=== PATIENT | female | born 1995 | race Two or more races ===

== ENCOUNTER 2016-08-24 21:21 | Emergency (ER) | payer BC ==
[2016-08-24 21:49] VITALS: BP 117/68
[2016-08-24] MEDS ORDERED: Prochlorperazine TAB* 10 MG PO ONE (22:10)
[2016-08-24] MEDS ORDERED: Ketorolac INJ* 60 MG/2 ML VIAL IM ONE (22:10)
[2016-08-24] MEDS ORDERED: Cyclobenzaprine TAB* 10 MG PO ONE (22:10)
--- NOTE | 2016-08-24 22:28 | ED ---
Head Injury - HPI Summary HPI Summary: Patient presents to ED 8 hours s/p mechanical fall on concrete and c/o right shoulder pain, right hip pain and right sided CARRION. Denies CARRION worst of life. Notes to going to work after the fall, but felt the CARRION all day and work sent her here to ED. She did not take any medication to alleviate the pain. Patient has chronic tension CARRION, but she states this feels similar but worse. Notes to 9/10 pain over right parietal and temporal areas. Patient notes to shoulder and hip pain but is able to raise arms and walk without difficulty. Denies LOC, memory loss, confusion, N/V or visual disturbances. Patient is otherwise healthy and takes no medications. She takes Excedrin if she develops a tension CARRION. - History Of Current Complaint Chief Complaint: EDGeneral Stated Complaint: FALL/HEAD,NECK AND RIGHT HIP INJURY Time Seen by Provider: 08/24/16 21:40 Hx Obtained From: Patient Hx Last Menstrual Period: 04/19/14 Mechanism Of Injury: Blunt Trauma, Fall From A Standing Position Onset/Duration: Started Hours Ago - 8 Onset of Pain: Immediate Severity Currently: Moderate Severity Initially: Moderate Pain Intensity: 7 Pain Scale Used: 0-10 Numeric Location of Head Injury: Temporal, Parietal Location: Discrete At: - right side Character: Sharp, Throbbing Alleviating Factor(s): Rest Associated Signs And Symptoms: Negative Related History: Similar Episode/Dx as - Risk Factors SDH Risk Factor: Negative - Allergies/Home Medications Allergies/Adverse Reactions: Allergies Allergy/AdvReac Type Severity Reaction Status Date / Time Penicillins Allergy Unknown Hives Verified 05/14/15 07:07 ENVIRONMENTAL Allergy WATERY Uncoded 05/14/15 07:07 EYES, RUNNY NOSE PMH/Surg Hx/FS Hx/Imm Hx Previously Healthy: Yes Endocrine/Hematology History: Reports: Other Endocrine/Hematological Disorders - PCOS - rx'd metformin - doesn't take d/t GI SE Denies: Hx Thyroid Disease Comment Only: Hx Diabetes - INSULIN RESISTANT Cardiovascular History: Denies: Hx Hypertension, Other Cardiovascular Problems/Disorders Respiratory History: Reports: Hx Asthma Denies: Hx Chronic Obstructive Pulmonary Disease (COPD), Other Respiratory Problems/Disorders GI History: Reports: Hx Gastroesophageal Reflux Disease Denies: Hx Ulcer, Other GI Disorders Musculoskeletal History: Reports: Hx Tendonitis - RIGHT ELBOW Sensory History: Reports: Hx Contacts or Glasses - GLASSES Denies: Hx Hearing Aid Opthamlomology History: Reports: Hx Contacts or Glasses - GLASSES Neurological History: Denies: Other Neuro Impairments/Disorders Psychiatric History: Reports: Hx Anxiety - Surgical History Surgery Procedure, Year, and Place: December 15, 2011 - Appendectomy. tonsilectomy Hx Anesthesia Reactions: No Infectious Disease History: No Infectious Disease History: Denies: Hx Clostridium Difficile, Hx Hepatitis, Hx Human Immunodeficiency Virus (HIV), Hx of Known/Suspected MRSA, Hx Shingles, Hx Tuberculosis, Hx Known/ Suspected VRE, Hx Known/Suspected VRSA, History Other Infectious Disease, Traveled Outside the [place] in Last 30 Days - Family History Known Family History: Positive: Cardiac Disease - a. fib, Respiratory Disease - asthma, Seizure Disorder - aunt, Other - variety of cancers - Social History Occupation: Employed Full-time Lives: With Family Alcohol Use: Rare Substance Use Type: Reports: None Smoking Status (MU): Never Smoked Tobacco Do You Chew or Dip Tobacco: No Have You Chewed or Dipped Tobacco in the LAST YEAR: No Have You Smoked in the Last Year: No Review of Systems Constitutional: Negative Eyes: Negative Cardiovascular: Negative Respiratory: Negative Genitourinary: Negative Musculoskeletal: Negative Positive: Headache Psychological: Normal All Other Systems Reviewed And Are Negative: Yes Physical Exam Triage Information Reviewed: Yes Vital Signs On Initial Exam: Initial Vitals Temp Pulse Resp BP Pulse Ox 98.8 F 86 18 140/78 100 08/24/16 21:30 08/24/16 21:30 08/24/16 21:30 08/24/16 21:30 08/24/16 21:30 Vital Signs Reviewed: Yes Appearance: Positive: Well-Appearing, No Pain Distress, Well-Nourished Skin: Positive: Warm, Skin Color Reflects Adequate Perfusion, Other - no ecchymosis or discolorations over r hip or r shoulder Head/Face: Positive: Normal Head/Face Inspection Eyes: Positive: EOMI, HENOK, Conjunctiva Clear ENT: Positive: Other - without hemotympanum, perez sign or raccoon sign Neck: Positive: Supple, No Lymphadenopathy Respiratory/Lung Sounds: Positive: Clear to Auscultation, Breath Sounds Present Cardiovascular: Positive: Normal, RRR Musculoskeletal: Positive: Normal, Strength/ROM Intact, Other - Neer test negative, empty can negative. gait normal. Neurological: Positive: Normal, Sensory/Motor Intact, Alert, Oriented to Person Place, Time, CN Intact II-III, Reflexes Intact, Normal Gait, Facial Symmetry, Speech Normal Psychiatric: Positive: Normal AVPU Assessment: Alert Diagnostics - Vital Signs Vital Signs Temp Pulse Resp BP Pulse Ox 08/24/16 21:46 98.3 F 74 20 117/68 99 08/24/16 21:30 98.8 F 86 18 140/78 100 - Laboratory Lab Statement: Any lab studies that have been ordered have been reviewed, and results considered in the medical decision making process. Head Injury Course/Dx Course Of Treatment: Patient evaluated for neurological deficits. Patient without LOC, memory loss, confusion, mood changes. CARRION not worst of life. Gait normal. Shoulder exam WNL. Patient notes to chronic tension CARRION. Treatment includes compazine, toradol and flexeril. Patient given rx for compazine and flexeril. Patient agrees to follow up with neuro if symptoms continue or worsen. Educated patient regarding CT brain. Patient OK with plan and will return for worsening symptoms. - Diagnoses Differential Diagnosis/HQI/PQRI: Concussion Without LOC, Contusion, Intracranial Bleed Provider Diagnoses: Headache Discharge - Discharge Plan Condition: Stable Disposition: HOME Prescriptions: Cyclobenzaprine TAB* [Flexeril TAB*] 10 mg PO BID PRN #10 tab MDD 2 PRN Reason: Pain Prochlorperazine TAB* [Compazine Tab*] 10 mg PO Q6H PRN #12 tab MDD 4 PRN Reason: Migraine Headache Patient Education Materials: Tension Headache (ED), Acute Headache (ED) Forms: *Work Release Referrals: Gini Almonte MD [Primary Care Provider] - Additional Instructions: Take 1 compazine and 600mg ibuprofen at first onset of headache. At night, you may take bendaryl 25mg with these two medications. If you develop worsening symptoms, or headache is not dissipating, please come back to ED immediately. Flexeril for muscle pain.
== END 2016-08-24 22:30 | disposition home or self-care (01) ==
LOC: ED 21:21
DX: R51 Headache (principal); M25.511 Pain in right shoulder
CPT/HCPCS: 96372; 99283; A9270-GY; J1885; Q0164

== ENCOUNTER 2017-01-05 00:06 | Emergency (ER) | payer BC ==
[2017-01-05 02:13] LABS: Hematocrit 39 % (35-47); Hemoglobin 12.6 g/dl (12.0-16.0); Mean Corpuscular HGB Conc 32 g/dl (31-36); Mean Corpuscular Hemoglobin 28 pg (27-31); Mean Corpuscular Volume 86 fL (80-97); Mean Platelet Volume 9 um3 (7.4-10.4); Red Blood Count 4.56 10^6/ul (4.0-5.4); Red Cell Distribution Width 13 % (10.5-15); White Blood Count 11.4 10^3/ul (3.5-10.8)
--- NOTE | 2017-01-05 02:30 | ED ---
Respiratory - HPI Summary HPI Summary: 22F w/ PMH of asthma presents with SOB and cough for a day. She states she has chest pain in center of chest from coughing and has sort of an acid reflux type pain. She denies any sinus congestion, nasal congestion. She denies any fever or ear pain. She states she lost her inhaler and hasn't used it for years but she used her moms today and it helped. She states she has never had this before. No one else is sick. She is suppose to be on flovent but hasn't seen a doctor in years. She denies any abdominal pain, n/v/d/c. - History of Current Complaint Chief Complaint: EDShortnessOfBreath Stated Complaint: SOB ALL DAY/CHEST PAIN X2 HRS Time Seen by Provider: 01/05/17 00:52 Pain Intensity: 5 - Allergy/Home Medications Allergies/Adverse Reactions: Allergies Allergy/AdvReac Type Severity Reaction Status Date / Time Penicillins Allergy Unknown Hives Verified 05/14/15 07:07 ENVIRONMENTAL Allergy WATERY Uncoded 05/14/15 07:07 EYES, RUNNY NOSE PMH/Surg Hx/FS Hx/Imm Hx Endocrine/Hematology History: Reports: Other Endocrine/Hematological Disorders - PCOS - rx'd metformin - doesn't take d/t GI SE Denies: Hx Thyroid Disease Comment Only: Hx Diabetes - INSULIN RESISTANT Cardiovascular History: Denies: Hx Hypertension, Other Cardiovascular Problems/Disorders Respiratory History: Reports: Hx Asthma Denies: Hx Chronic Obstructive Pulmonary Disease (COPD), Other Respiratory Problems/Disorders GI History: Reports: Hx Gastroesophageal Reflux Disease Denies: Hx Ulcer, Other GI Disorders Musculoskeletal History: Reports: Hx Tendonitis - RIGHT ELBOW Sensory History: Reports: Hx Contacts or Glasses - GLASSES Denies: Hx Hearing Aid Opthamlomology History: Reports: Hx Contacts or Glasses - GLASSES Neurological History: Denies: Other Neuro Impairments/Disorders Psychiatric History: Reports: Hx Anxiety - Surgical History Surgery Procedure, Year, and Place: December 15, 2011 - Appendectomy. tonsilectomy Hx Anesthesia Reactions: No Infectious Disease History: Denies: Hx Clostridium Difficile, Hx Hepatitis, Hx Human Immunodeficiency Virus (HIV), Hx of Known/Suspected MRSA, Hx Shingles, Hx Tuberculosis, Hx Known/ Suspected VRE, Hx Known/Suspected VRSA, History Other Infectious Disease, Traveled Outside the [place] in Last 30 Days - Family History Known Family History: Positive: Cardiac Disease - a. fib, Respiratory Disease - asthma, Seizure Disorder - aunt, Other - variety of cancers - Social History Alcohol Use: Rare Substance Use Type: Reports: None Smoking Status (MU): Never Smoked Tobacco Have You Smoked in the Last Year: No Review of Systems Negative: Fever Positive: Chest Pain Positive: Shortness Of Breath, Cough Negative: Abdominal Pain All Other Systems Reviewed And Are Negative: Yes Physical Exam Triage Information Reviewed: Yes Vital Signs On Initial Exam: Initial Vitals Temp Pulse Resp BP Pulse Ox 98 F 72 18 122/80 100 01/05/17 00:28 01/05/17 00:28 01/05/17 00:28 01/05/17 00:28 01/05/17 00:28 Vital Signs Reviewed: Yes Appearance: Positive: Well-Appearing Skin: Positive: Warm, Dry Head/Face: Positive: Normal Head/Face Inspection Eyes: Positive: Normal, EOMI, HENOK, Conjunctiva Clear ENT: Positive: Normal ENT inspection, Pharynx normal, TMs normal Respiratory/Lung Sounds: Positive: Clear to Auscultation, Breath Sounds Present Cardiovascular: Positive: Normal, RRR Abdomen Description: Positive: Nontender, Soft Bowel Sounds: Positive: Present Diagnostics - Vital Signs Vital Signs Temp Pulse Resp BP Pulse Ox 01/05/17 00:28 98 F 72 18 122/80 100 - Laboratory Lab Results: Lab Results 01/05/17 Range/Units 02:04 WBC 11.4 H (3.5-10.8) 10^3/ul RBC 4.56 (4.0-5.4) 10^6/ul Hgb 12.6 (12.0-16.0) g/dl Hct 39 (35-47) % MCV 86 (80-97) fL MCH 28 (27-31) pg MCHC 32 (31-36) g/dl RDW 13 (10.5-15) % Plt Count 230 (150-450) 10^3/ul MPV 9 (7.4-10.4) um3 Neut % (Auto) 57.7 (38-83) % Lymph % (Auto) 31.0 (25-47) % Towner % (Auto) 8.7 (1-9) % Eos % (Auto) 1.9 (0-6) % Baso % (Auto) 0.7 (0-2) % Absolute Neuts (auto) 6.6 (1.5-7.7) 10^3/ul Absolute Lymphs (auto) 3.5 (1.0-4.8) 10^3/ul Absolute Monos (auto) 1.0 H (0-0.8) 10^3/ul Absolute Eos (auto) 0.2 (0-0.6) 10^3/ul Absolute Basos (auto) 0.1 (0-0.2) 10^3/ul Absolute Nucleated RBC 0 10^3/ul Nucleated RBC % 0 Result Diagrams: 01/05/17 02:04 01/05/17 02:04 Lab Statement: Any lab studies that have been ordered have been reviewed, and results considered in the medical decision making process. Disposition - Course Course Of Treatment: 22F w/ PMH of asthma presents with SOB and cough for a day. She states she has chest pain in center of chest from coughing and has sort of an acid reflux type pain. She denies any sinus congestion, nasal congestion. She denies any fever or ear pain. She states she lost her inhaler and hasn't used it for years but she used her moms today and it helped. She states she has never had this before. No one else is sick. on exam lungs CTA. chest xray normal. labs normal. will treat with prednisone and inhaler as potential asthma excerbation vs bronchitis. patient understands and agrees with plan - Differential Dx - Cardiopulmonary Differential Diagnoses - Cardiopulmonary: Asthma, Bronchitis, Lower Resp Infection - Diagnoses Provider Diagnoses: Cough, Asthma Discharge - Discharge Plan Condition: Good Disposition: HOME Prescriptions: predniSONE TAB* [Deltasone TAB*] 40 mg PO DAILY #8 tab Patient Education Materials: Acute Bronchitis (ED) Referrals: Non Staff,Doctor [Primary Care Provider] - Additional Instructions: Use inhaler up to two puffs every 4 hours for cough and wheezing Take steroid once a day for 4 more days starting tomorrow Take Tylenol or ibuprofen for pain every 6 hours Return to ED if develop any new or worsening symptoms
[2017-01-05 02:33] LABS: Albumin 3.8 g/dL (3.2-5.2); Calcium 9.3 mg/dL (8.6-10.3); EGFR African American 119.5 (>60); EGFR Non-African American 92.9 (>60); Globulin 3.2 g/dL (2-4); Potassium 3.6 mmol/L (3.5-5.0); Total Bilirubin 0.2 mg/dL (0.2-1.0)
[2017-01-05] MEDS ORDERED: predniSONE TAB* 20 MG PO ONE (02:38)
[2017-01-05] MEDS ORDERED: Albuterol HFA INHALER* 8 gm MDI INH ONE (02:38)
[2017-01-05 03:38] VITALS: BP 112/83
--- NOTE | 2017-01-05 07:48 | RAD ---
INDICATION: Cough and chest pain. COMPARISON: Comparison is made with a prior chest x-ray study from every 2004. TECHNIQUE: Dual-energy PA and lateral views of the chest were obtained. FINDINGS: The heart is within normal limits in size. Mediastinal and hilar contours appear within normal limits. The lungs are clear. No pleural effusion is present. IMPRESSION: NO EVIDENCE FOR ACTIVE CARDIOPULMONARY DISEASE.
== END 2017-01-05 03:40 | disposition home or self-care (01) ==
LOC: ED 00:06
DX: R05 Cough (principal); J45.909 Unspecified asthma, uncomplicated; K21.9 Gastro-esophageal reflux disease without esophagitis; Z88.0 Allergy status to penicillin
CPT/HCPCS: 36415; 71020; 80053; 84484; 85025; 93005; 99283; A9270-GY; J7512

== ENCOUNTER 2017-01-09 11:22 | Emergency (ER) | payer BC ==
[2017-01-09 11:49] VITALS: BP 125/79
--- NOTE | 2017-01-09 12:10 | RAD ---
HISTORY: Cough, shortness of breath COMPARISONS: January 05, 2017 VIEWS: 4: Frontal dual-energy and lateral views of the chest. FINDINGS: CARDIOMEDIASTINAL SILHOUETTE: The cardiomediastinal silhouette is normal. RAFFY: The raffy are normal. PLEURA: The costophrenic angles are sharp. No pleural abnormalities are noted. LUNG PARENCHYMA: The lungs are clear. ABDOMEN: The upper abdomen is clear. There is no subphrenic gas. BONES AND SOFT TISSUES: No bone or soft tissue abnormalities are noted. OTHER: None. IMPRESSION: NO ACTIVE CARDIOPULMONARY DISEASE.
[2017-01-09] MEDS ORDERED: Lidocaine 2% VISCOUS* 15 ML UDC PO ONE (12:16)
[2017-01-09] MEDS ORDERED: Al Hydrox/Mg Hydrox/Simet LIQ* 30 ML UDC PO ONE (12:16)
--- NOTE | 2017-01-09 12:21 | ED ---
Respiratory - HPI Summary HPI Summary: 22F w/ PMH of asthma presents with SOB and cough for a week. She states that her cough remains unchanged. She only took one dose of the prednisone due to it causing nausea. She has been taking the inhaler. She states that she has SOB and chest pain when she coughs. She sometimes get acid reflux type pain. She admits to nasal congestion. She denies any fever or ear pain. No one else is sick. She denies any abdominal pain, n/v/d/c. - History of Current Complaint Chief Complaint: EDUpperRespComplaint Stated Complaint: CHEST PAINS,HEADACHE/WAS HERE FRIDAY Time Seen by Provider: 01/09/17 11:34 Pain Intensity: 6 - Allergy/Home Medications Allergies/Adverse Reactions: Allergies Allergy/AdvReac Type Severity Reaction Status Date / Time Penicillins Allergy Unknown Hives Verified 05/14/15 07:07 ENVIRONMENTAL Allergy WATERY Uncoded 05/14/15 07:07 EYES, RUNNY NOSE PMH/Surg Hx/FS Hx/Imm Hx Endocrine/Hematology History: Reports: Other Endocrine/Hematological Disorders - PCOS - rx'd metformin - doesn't take d/t GI SE Denies: Hx Thyroid Disease Comment Only: Hx Diabetes - INSULIN RESISTANT Cardiovascular History: Denies: Hx Hypertension, Other Cardiovascular Problems/Disorders Respiratory History: Reports: Hx Asthma - JUST STARTED USING INHAILER. 12/30 Denies: Hx Chronic Obstructive Pulmonary Disease (COPD), Other Respiratory Problems/Disorders GI History: Reports: Hx Gastroesophageal Reflux Disease Denies: Hx Ulcer, Other GI Disorders Musculoskeletal History: Reports: Hx Tendonitis - RIGHT ELBOW Sensory History: Reports: Hx Contacts or Glasses - GLASSES Denies: Hx Hearing Aid Opthamlomology History: Reports: Hx Contacts or Glasses - GLASSES Neurological History: Denies: Other Neuro Impairments/Disorders Psychiatric History: Reports: Hx Anxiety - Surgical History Surgery Procedure, Year, and Place: December 15, 2011 - Appendectomy. tonsilectomy Hx Anesthesia Reactions: No Infectious Disease History: No Infectious Disease History: Denies: Hx Clostridium Difficile, Hx Hepatitis, Hx Human Immunodeficiency Virus (HIV), Hx of Known/Suspected MRSA, Hx Shingles, Hx Tuberculosis, Hx Known/ Suspected VRE, Hx Known/Suspected VRSA, History Other Infectious Disease, Traveled Outside the [place] in Last 30 Days - Family History Known Family History: Positive: Cardiac Disease - a. fib, Respiratory Disease - asthma, Seizure Disorder - aunt, Other - variety of cancers - Social History Alcohol Use: Rare Substance Use Type: Reports: None Hx Tobacco Use: Yes Smoking Status (MU): Never Smoked Tobacco Have You Smoked in the Last Year: No Review of Systems Negative: Fever Positive: Nasal Discharge. Negative: Sore Throat Positive: Chest Pain Positive: Shortness Of Breath, Cough All Other Systems Reviewed And Are Negative: Yes Physical Exam Triage Information Reviewed: Yes Vital Signs On Initial Exam: Initial Vitals Temp Pulse Resp BP Pulse Ox 98.4 F 88 18 125/79 100 01/09/17 11:26 01/09/17 11:26 01/09/17 11:26 01/09/17 11:01/09/17 11:26 Vital Signs Reviewed: Yes Appearance: Positive: Well-Appearing Skin: Positive: Warm, Dry Head/Face: Positive: Normal Head/Face Inspection Eyes: Positive: Normal, Conjunctiva Clear ENT: Positive: Pharynx normal, Nasal congestion, TMs normal Neck: Positive: Supple, Nontender, Tenderness @ - anterior cervical chain Respiratory/Lung Sounds: Positive: Clear to Auscultation, Breath Sounds Present Cardiovascular: Positive: Normal, RRR Abdomen Description: Positive: Nontender, Soft Bowel Sounds: Positive: Present Diagnostics - Vital Signs Vital Signs Temp Pulse Resp BP Pulse Ox 01/09/17 11:26 98.4 F 88 18 125/79 100 - Laboratory Lab Statement: Any lab studies that have been ordered have been reviewed, and results considered in the medical decision making process. Disposition - Course Course Of Treatment: 22F w/ PMH of asthma presents with SOB and cough for a week. She states that her cough remains unchanged. She only took one dose of the prednisone due to it causing nausea. She has been taking the inhaler. She states that she has SOB and chest pain when she coughs. She sometimes get acid reflux type pain. She admits to nasal congestion. She denies any fever or ear pain. on exam lungs CTA, nasal congestion present. chest xray normal and ekg normal. discussed will add cough medication and nausea medication so can take zofran. patient understands and agrees with plan - Differential Dx - Cardiopulmonary Differential Diagnoses - Cardiopulmonary: Asthma, Bronchitis, Lower Resp Infection - Diagnoses Provider Diagnoses: Bronchitis Discharge - Discharge Plan Condition: Good Disposition: HOME Prescriptions: Benzonatate CAP* [Tessalon 100 MG CAP*] 100 mg PO TID #15 cap Ondansetron ODT TAB* [Zofran 4 MG Odt TAB*] 4 mg PO Q6H PRN #10 tab.odt PRN Reason: Nausea Patient Education Materials: Acute Bronchitis (ED) Forms: *Work Release Referrals: Non Staff,Doctor [Primary Care Provider] - Additional Instructions: Use Tessalon three times a day for cough Use inhaler one puff every 4 hours for cough as needed Take zofran every 6 hours as needed for nausea and before taking steroid Use humidifier or place warm bowls of water around the room Take Tylenol and ibuprofen for pain/fever every 6 hours Follow up with primary within 5 days Return to ED if develop any new or worsening symptoms
== END 2017-01-09 12:37 | disposition home or self-care (01) ==
LOC: ED 11:22
DX: J40 Bronchitis, not specified as acute or chronic (principal); R07.9 Chest pain, unspecified; R06.02 Shortness of breath; R05 Cough
CPT/HCPCS: 71020; 93005; 99282; A9270-GY

== ENCOUNTER 2018-02-02 07:36 | Emergency (ER) | payer BC ==
[2018-02-02 07:53] VITALS: BP 125/66
--- NOTE | 2018-02-02 08:08 | ED ---
Skin Complaint - HPI Summary HPI Summary: [id number] patient here with left distal ring (4th) finger swelling, redness and pain 5 days. There is known area of green tissue along the nail bed and red streaking just on the side of the finger. Patient reports the swelling is also leading to some numbness at the very tip. Denies fever, chills , nausea, vomiting, stiffness - she is still able to bend her finger freely and pain-free. Reports pain is only when she accidentally hit it off of something. Otherwise has a mild throbbing sensation at times. Has not tried anything for pain such as soaks or ibuprofen. Admits she bites the cuticles around her nails as well as her nails. Denies previous history of MRSA or staph. - History of Current Complaint Chief Complaint: UCUpperExtremity Time Seen by Provider: 02/02/18 07:51 Stated Complaint: FINGER PAIN L Hx Obtained From: Patient Hx Last Menstrual Period: 06/30/2017 Pain Intensity: 4 - Allergy/Home Medications Allergies/Adverse Reactions: Allergies Allergy/AdvReac Type Severity Reaction Status Date / Time Penicillins Allergy Hives Verified 02/02/18 07:46 ENVIRONMENTAL Allergy WATERY Uncoded 02/02/18 07:45 EYES, RUNNY NOSE PMH/Surg Hx/FS Hx/Imm Hx Previously Healthy: Yes Endocrine/Hematology History: Reports: Other Endocrine/Hematological Disorders - PCOS - rx'd metformin - doesn't take d/t GI SE Denies: Hx Anticoagulant Therapy, Hx Blood Disorders, Hx Diabetes, Hx Thyroid Disease Cardiovascular History: Denies: Hx Hypertension, Other Cardiovascular Problems/Disorders Respiratory History: Reports: Hx Asthma Denies: Hx Chronic Obstructive Pulmonary Disease (COPD), Other Respiratory Problems/Disorders GI History: Reports: Hx Gastroesophageal Reflux Disease Denies: Hx Ulcer, Other GI Disorders Musculoskeletal History: Reports: Hx Tendonitis - RIGHT ELBOW Sensory History: Reports: Hx Contacts or Glasses - GLASSES Denies: Hx Hearing Aid Opthamlomology History: Reports: Hx Contacts or Glasses - GLASSES Neurological History: Denies: Other Neuro Impairments/Disorders Psychiatric History: Reports: Hx Anxiety - Surgical History Surgery Procedure, Year, and Place: December 15, 2011 - Appendectomy. tonsilectomy Hx Anesthesia Reactions: No Infectious Disease History: No Infectious Disease History: Denies: Hx Clostridium Difficile, Hx Hepatitis, Hx Human Immunodeficiency Virus (HIV), Hx of Known/Suspected MRSA, Hx Shingles, Hx Tuberculosis, Hx Known/ Suspected VRE, Hx Known/Suspected VRSA, History Other Infectious Disease, Traveled Outside the [place] in Last 30 Days - Family History Known Family History: Positive: Cardiac Disease - a. fib, Respiratory Disease - asthma, Seizure Disorder - aunt, Other - variety of cancers - Social History Occupation: Employed Full-time - [employer] Alcohol Use: Occasionally Hx Substance Use: No Substance Use Type: Reports: None Hx Tobacco Use: No - pt denies Smoking Status (MU): Never Smoked Tobacco Have You Smoked in the Last Year: No Review of Systems Constitutional: Negative Negative: Fever, Chills, Fatigue Positive: Edema Skin: Other - redness, swelling Positive: Paresthesia Psychological: Normal All Other Systems Reviewed And Are Negative: Yes Physical Exam Triage Information Reviewed: Yes Vital Signs On Initial Exam: Initial Vitals Temp Pulse Resp BP Pulse Ox 98.1 F 76 16 125/66 98 02/02/18 07:48 02/02/18 07:48 02/02/18 07:48 02/02/18 07:48 02/02/18 07:48 Vital Signs Reviewed: Yes Appearance: Positive: Well-Appearing, No Pain Distress, Obese Skin: Positive: Warm, Skin Color Reflects Adequate Perfusion, Dry - erythematous and edematous Lt ring (4th) finger along lateral aspect of fingernail bed - streaking along finger only (does not progress into hand) - no drainage but small focal area of yellow/green tissue at peak of swelling next to nailbed Head/Face: Positive: Normal Head/Face Inspection Eyes: Positive: EOMI ENT: Positive: Hearing grossly normal Respiratory/Lung Sounds: Positive: Breath Sounds Present Cardiovascular: Positive: Pulses are Symmetrical in both Upper and Lower Extremities Musculoskeletal: Positive: Normal, Strength/ROM Intact Neurological: Positive: Normal, Sensory/Motor Intact, Alert, Oriented to Person Place, Time, CN Intact II-III Psychiatric: Positive: Normal Procedures - Incision and Drainage Left Upper Finger Dorsal Anesthesia: Digital - lidocaine1% - effective Instrument(s): Scalpel - #15- purulent drainage expressed - hemodynamically stable -pt tolerated well Packing: Other - no packing - gauze w/ bandaid dressing Diagnostics - Vital Signs Vital Signs Temp Pulse Resp BP Pulse Ox 02/02/18 07:48 98.1 F 76 16 125/66 98 - Laboratory Lab Statement: Any lab studies that have been ordered have been reviewed, and results considered in the medical decision making process. Course/Dx - Diagnoses Provider Diagnoses: Paronychia of left ring finger Discharge - Sign-Out/Discharge Documenting (check all that apply): Patient Departure All imaging exams completed and their final reports reviewed: No Studies - Discharge Plan Condition: Stable Disposition: HOME Prescriptions: Sulfamethox/Trimethoprim DS* [Bactrim DS 800/160 TAB*] 1 tab PO BID #20 tab Patient Education Materials: Paronychia (ED) Referrals: [facility] [Outside] Additional Instructions: Continue to soak daily Do not occlude wound but you may cover to absorb drainage Rest and elevate to avoid swelling You may take ibuprofen with food as needed for pain/swelling - take with food Complete antibiotics as directed - take probiotics in between to prevent diarrhea, yeast Follow-up with PCP in 2-3 days to recheck for improvement or progression of infection - if much worse, go to the ED *If you do not have a PCP, call [facility] for follow-up appointment at the hospital See educational handout for detailed instructions - Billing Disposition and Condition Condition: STABLE Disposition: Home
[2018-02-02] MEDS ORDERED: Lidocaine 1% INJ* 10 MG/ML 30 ML SDV INJ ONE (08:34)
[2018-02-02] MEDS ORDERED: Lidocaine 1%* 5 ML VIAL ONE (08:37)
[2018-02-02] MEDS ORDERED: Lidocaine 1%* 5 ML VIAL INJ ONE (08:38)
== END 2018-02-02 09:05 | disposition home or self-care (01) ==
LOC: UCEAST 07:36
DX: L03.012 Cellulitis of left finger (principal); Z88.0 Allergy status to penicillin
CPT/HCPCS: 87070; 87077; 87186; 87205; 87640; 87641; 99212; G0463

== ENCOUNTER 2018-02-11 09:26 | Emergency (ER) | payer BC ==
[2018-02-11 09:36] VITALS: BP 133/73
[2018-02-11] MEDS ORDERED: Albuterol HFA INHALER* 8 gm MDI INH ONE (09:50)
--- NOTE | 2018-02-11 09:51 | UC ---
Respiratory Complaint HPI - HPI Summary HPI Summary: A 23 y/o F presents to [facility] with c/o mildly productive cough (yellow phlegm) and chest congestion past 2-3 days. Associated sx: sinus sx onset one week ago, mild sore throat. Denies ear pain. Pt does not have her inhaler because she cannot afford one, her insurance charges her approx. $60 per inhaler. Took Tylenol, NyQuil to mild relief. Aggravating factors: lying down. Non-smoker. - History of Current Complaint Chief Complaint: UCGeneralIllness Stated Complaint: COUGH,CONGESTED Time Seen by Provider: 02/11/18 09:43 Hx Obtained From: Patient Hx Last Menstrual Period: june 2017 Onset/Duration: Gradual Onset, Lasting Days, Still Present Timing: Constant Severity Initially: Mild Severity Currently: Mild Pain Intensity: 2 Pain Scale Used: 0-10 Numeric Character: Cough: Productive, Sputum Description: - yellow Aggravating Factors: Recumbent Position Alleviating Factors: OTC Meds Associated Signs And Symptoms: Positive: Sinus Discomfort - Allergies/Home Medications Allergies/Adverse Reactions: Allergies Allergy/AdvReac Type Severity Reaction Status Date / Time Penicillins Allergy Hives Verified 02/11/18 09:36 ENVIRONMENTAL Allergy WATERY Uncoded 02/11/18 09:36 EYES, RUNNY NOSE Home Medications: Home Medications Testosterone Cypionate 0.5 mg IM SEE INSTRUCTIONS 02/11/18 [History Confirmed ] PMH/Surg Hx/FS Hx/Imm Hx Previously Healthy: No Other Cardiovascular History: neg: HTN Respiratory History: Asthma GI/ History: Gastroesophageal Reflux Other History Of: Negative For: Anticoagulant Therapy - Surgical History Surgical History: Yes Surgery Procedure, Year, and Place: December 15, 2011 - Appendectomy. tonsilectomy - Family History Known Family History: Positive: Cardiac Disease - a. fib, Respiratory Disease - asthma, Seizure Disorder - aunt, Other - variety of cancers - Social History Occupation: Employed Full-time Lives: Alone Alcohol Use: Occasionally Substance Use Type: None Smoking Status (MU): Never Smoked Tobacco Have You Smoked in the Last Year: No Household Exposure Type: Cigarettes Review of Systems ENT: Sore Throat - mild, Other - pos: sinus sx; neg: ear pain Respiratory: Cough Cardiovascular: Other - pos: chest congestion All Other Systems Reviewed And Are Negative: Yes Physical Exam - Summary Physical Exam Summary: General: well-appearing, no pain distress Skin: warm, color reflects adequate perfusion, dry Head: normal Eyes: EOMI, HENOK ENT: positive rhinorrhea, posterior pharynx positive erythema Neck: supple, nontender Respiratory: breath sounds present, rare wheeze Cardiovascular: RRR Abdomen: soft, nontender Bowel: present Musculoskeletal: normal, strength/ROM intact Neurological: sensory/motor intact, A&O x3 Psychological: affect/mood appropriate Triage Information Reviewed: Yes Vital Signs: Initial Vital Signs Temp 97.8 F 02/11/18 09:31 Pulse 62 02/11/18 09:31 Resp 18 02/11/18 09:31 BP 133/73 02/11/18 09:31 Pulse Ox 98 02/11/18 09:31 Vital Signs Reviewed: Yes UC Diagnostic Evaluation - Laboratory O2 Sat by Pulse Oximetry: 98 Respiratory Course/Dx - Course Course Of Treatment: BP noted. Medications reviewed. Allergies noted. DISCUSSED VIRAL VERSES BACTERIAL INFECTION AND THE ROLE OF ANTIBIOTICS. THE PATIENT WISHES TO BE ON ANTIBIOTICS AT THIS TIME. - Differential Dx/Diagnosis Provider Diagnoses: ASTHMA EXACERBATION. BRONCHITIS Discharge - Sign-Out/Discharge Documenting (check all that apply): Patient Departure - DC All imaging exams completed and their final reports reviewed: No Studies - Discharge Plan Condition: Stable Disposition: HOME Prescriptions: Azithromyxin WYATT (NF) [Z-Wyatt (Zithromax) 250 mg tabs #6] 2 tab PO .TODAY, THEN 1 DAILY #6 tab Patient Education Materials: Asthma (ED), Acute Bronchitis (ED) Referrals: [facility] [Outside] Additional Instructions: FOLLOW UP WITH YOUR DOCTOR. GET RECHECKED FOR ANY WORSENING OF YOUR CONDITION OR QUESTIONS OR CONCERNS. - Billing Disposition and Condition Condition: STABLE Disposition: Home - Attestation Statements Document Initiated by Scribe: Yes Documenting Scribe: Nithin Patiño Provider For Whom Scribe is Documenting (Include Credential): Puneet Barron MD Scribe Attestation: Nithin David, scrwilliamed for Puneet Barron MD on 02/11/18 at 1155. Scribe Documentation Reviewed: Yes Provider Attestation: The documentation as recorded by the Nithin monique accurately reflects the service I personally performed and the decisions made by me, Puneet Barron MD
== END 2018-02-11 10:05 | disposition home or self-care (01) ==
LOC: UCEAST 09:26
DX: J45.901 Unspecified asthma with (acute) exacerbation (principal); Z88.0 Allergy status to penicillin; Z91.09 Other allergy status, other than to drugs and biological substances
CPT/HCPCS: 99212; A9270-GY; G0463

== ENCOUNTER 2018-07-08 22:48 | Emergency (ER) | payer BC, OTHER ==
--- NOTE | 2018-07-08 23:18 | ED ---
Influenza-Like Illness - HPI Summary HPI Summary: The pt is a 23 y/o F to M presenting to the ED with a chief complaint of flu- like symptoms. The pt reports fever, chills, cough, nasal discharge, nausea, headache, and occasional smoking but has not touched anything since 07/03/18. The pt recently had bronchitis. The pt's mother presently has the flu. He has also not recently had his testosterone. - History of Current Complaint Chief Complaint: EDFluSymptoms Time Seen by Provider: 07/08/18 23:11 Hx Obtained From: Patient Onset/Duration: Gradual Onset, Lasting Days, Still Present Severity: Mild Associated Signs & Symptoms: Fever, Cough, Nasal Congestion, Headache Related Hx: Possible Flu/Infectious Exposure - mother has flu - Allergy/Home Medications Allergies/Adverse Reactions: Allergies Allergy/AdvReac Type Severity Reaction Status Date / Time Penicillins Allergy Hives Verified 07/08/18 22:53 ENVIRONMENTAL Allergy WATERY Uncoded 07/08/18 22:53 EYES, RUNNY NOSE PMH/Surg Hx/FS Hx/Imm Hx Previously Healthy: No Endocrine/Hematology History: Reports: Other Endocrine/Hematological Disorders - PCOS - rx'd metformin - doesn't take d/t GI SE Denies: Hx Anticoagulant Therapy, Hx Blood Disorders, Hx Diabetes, Hx Thyroid Disease Cardiovascular History: Denies: Hx Hypertension, Other Cardiovascular Problems/Disorders Respiratory History: Reports: Hx Asthma Denies: Hx Chronic Obstructive Pulmonary Disease (COPD), Other Respiratory Problems/Disorders GI History: Reports: Hx Gastroesophageal Reflux Disease Denies: Hx Ulcer, Other GI Disorders Musculoskeletal History: Reports: Hx Tendonitis - RIGHT ELBOW Sensory History: Reports: Hx Contacts or Glasses - GLASSES Denies: Hx Hearing Aid Opthamlomology History: Reports: Hx Contacts or Glasses - GLASSES Neurological History: Denies: Other Neuro Impairments/Disorders Psychiatric History: Reports: Hx Anxiety - Surgical History Surgery Procedure, Year, and Place: December 15, 2011 - Appendectomy. tonsilectomy Hx Anesthesia Reactions: No Infectious Disease History: No Infectious Disease History: Denies: Hx Clostridium Difficile, Hx Hepatitis, Hx Human Immunodeficiency Virus (HIV), Hx of Known/Suspected MRSA, Hx Shingles, Hx Tuberculosis, Hx Known/ Suspected VRE, Hx Known/Suspected VRSA, History Other Infectious Disease, Traveled Outside the [place] in Last 30 Days - Family History Known Family History: Positive: Cardiac Disease - a. fib, Respiratory Disease - asthma, Seizure Disorder - aunt, Other - variety of cancers - Social History Alcohol Use: Occasionally Hx Substance Use: No Substance Use Type: Reports: None Hx Tobacco Use: Yes Smoking Status (MU): Current Some Day Smoker Have You Smoked in the Last Year: No Review of Systems Positive: Fever, Chills Positive: Nasal Discharge Positive: Cough Positive: Nausea Positive: Headache All Other Systems Reviewed And Are Negative: Yes Physical Exam - Summary Physical Exam Summary: Appearance: Well appearing, no pain distress Skin: warm, dry, reflects adequate perfusion Head/face: normal Eyes: EOMI, HENOK ENT: mucous membranes moist, clear nasal discharge Neck: supple, non-tender Respiratory: CTA, breath sounds present Cardiovascular: RRR, pulses symmetrical Abdomen: non-tender, soft Bowel Sounds: present Musculoskeletal: normal, strength/ROM intact Neuro: normal, sensory motor intact, A&Ox3 Triage Information Reviewed: Yes Vital Signs On Initial Exam: Initial Vitals Temp Pulse Resp BP Pulse Ox 97.1 F 67 16 121/86 97 07/08/18 22:50 07/08/18 22:50 07/08/18 22:50 07/08/18 22:50 07/08/18 22:50 Vital Signs Reviewed: Yes Diagnostics - Vital Signs Vital Signs Temp Pulse Resp BP Pulse Ox 07/08/18 22:50 97.1 F 67 16 121/86 97 - Laboratory Lab Statement: Any lab studies that have been ordered have been reviewed, and results considered in the medical decision making process. Flu Symptom Course/Dx - Course Course Of Treatment: Nurse's notes reviewed. He should with minor cold symptoms with exposure to influenza a. No fever or difficulty breathing. Presumed influenza. Unlikely to benefit from Tamiflu and patient agrees. Treat symptomatically. Also refilled testosterone in this transgender patient was gone without for the last several weeks. - Diagnoses Differential Diagnosis/HQI/PQRI: Positive: Bronchitis, Influenza, Upper Respiratory Infection Provider Diagnoses: Influenza, Transgender Discharge - Sign-Out/Discharge Documenting (check all that apply): Patient Departure - home - Discharge Plan Condition: Improved Disposition: HOME Prescriptions: Benzonatate CAP* [Tessalon 100 MG CAP*] 100 mg PO TID PRN #15 cap PRN Reason: Cough Guaifenesin/Pseudo 600/60(NF) [Mucinex D 600/60 (NF)] 1 tab PO BID PRN #14 tab PRN Reason: cough/congestion Testosterone Cypionate 200 mg IM SEE INSTRUCTIONS #1 vial MDD 1 Patient Education Materials: Influenza (ED) Referrals: [facility] [Outside] [facility] [Outside] Additional Instructions: Use your inhaler every 4 hours as needed for cough/shortness of breath. Drink plenty of fluids, vitamin C may help. [facility] and provide follow-up to you as needed usually within 1-2 days. You were also given a primary care referral line that can help you find a family doctor. Return with difficulty breathing, unable to keep down fluids, worse, new symptoms or other concerns. - Billing Disposition and Condition Condition: IMPROVED Disposition: Home - Attestation Statements Document Initiated by Scribe: Yes Documenting Scribe: Bouchra Garcia Provider For Whom Scribe is Documenting (Include Credential): Champ Lundberg MD. Scribe Attestation: IBouchra, scribed for Champ Lundberg MD. on 07/08/18 at 2340. Scribe Documentation Reviewed: Yes Provider Attestation: The documentation as recorded by the scribe, Bouchra Garcia accurately reflects the service I personally performed and the decisions made by , Champ Lundberg MD. Status of Scribe Document: Viewed
[2018-07-08 23:37] VITALS: BP 130/79
== END 2018-07-08 23:37 | disposition home or self-care (01) ==
LOC: ED 22:48
DX: J11.1 Influenza due to unidentified influenza virus with other respiratory manifestations (principal); F64.0 Transsexualism; R05 Cough; R11.0 Nausea; Z72.0 Tobacco use; R51 Headache; R50.9 Fever, unspecified; Z88.0 Allergy status to penicillin
CPT/HCPCS: 99282

== ENCOUNTER 2018-12-10 06:23 | Emergency (ER) | payer OTHER ==
--- OUTSIDE RECORDS SUMMARY | 2018-12-10 06:32 | XMS REPORT | Continuity of Care Document ---
:1995 External Reference #:[id number] Author Name StewartTere oviedo Care Team Providers Name Role Phone Patient's Choice Primary Care Physician Unavailable Payers Date Identification Numbers Payment Provider Subscriber Policy Number: [id number] Jarek oHwe PayID: [id number] [address] [place] [address] Onset: 2012 Policy Number: [id number] [employer] Haritha Howe PayID: [id number] [facility] [address] [place] [address] Problems Active Problems Provider Date Lateral epicondylitis Barak Cortes M.D. Onset: 06/28/2013 Sprain of medial collateral ligament of knee Tiny Castillo M.D. Onset: 2018 Sprain of lateral collateral ligament of knee Tiny Castillo M.D. Onset: 11/04 Family History Date Family Member(s) Observation Comments General cancer General Hypertension Social History Type Date Description Comments Sex Unknown Lives With Family Occupation Delivery ETO[employer] Use Never used alcohol Tobacco Use Start: Unknown Patient is a current smoker, smokes every day Smoking Status Reviewed: 11/20/18 Patient is a current smoker, smokes every day Exercise Type/Frequency Exercises regularly Allergies, Adverse Reactions, Alerts Active Allergies Reaction Severity Comments Date Penicillin 06/28/2013 Medications Active Medications SIG Qnty Indications Ordering Provider Date Naproxen 1 tablet with 90tabs M25.562 Tiny Castillo, 11/04/2018 500mg Tablets food by mouth M.D. twice a day Albuterol Sulfate Unknown Flovent Diskus Unknown Celexa Unknown Hydroxyzine HCL 1 tablets by Unknown 25mg mouth every 6-8 Tablets hours as needed for anxiety Testosterone apply 1 click (5 Unknown 12.5mg/Act grams) to thigh (1%) Gel daily History Medications Metformin HCL Unknown - 06/16/2018 Vital Signs Date Vital Result Comment 11/20/2018 4:00pm Height 68 inches 5'8" Heart Rate 60 /min BP Systolic 100 mmHg BP Diastolic 62 mmHg Respiratory Rate 12 /min Pain Level 2 11/04/2018 9:21am Height 68 inches 5'8" Weight 248.00 lb Heart Rate 64 /min BP Systolic 100 mmHg BP Diastolic 64 mmHg BMI (Body Mass Index) 37.7 kg/m2 10/19/2018 9:43am Height 69 inches 5'9" Weight 251.00 lb Heart Rate 66 /min Body Temperature 95.1 F O2 % BldC Oximetry 97 % BMI (Body Mass Index) 37.1 kg/m2 Results Test Date Facility Test Result H/L Range Note Xray 11/04/2018 [facility] Knee 3 Views LT <pending> [address] [place] [address] [phone] Xray 10/30/2018 [facility] MRI Knee Right W/O <pending> [address] [place] [address] [phone] Encounters Type Date Location Provider Dx Diagnosis Office Visit 11/04/2018 [facility] Tiny Castillo, M25.562 Pain in left knee 9:00a [facility] M25.462 Effusion, left knee S83.412D Sprain of medial collateral ligament of left knee, subs S83.422D Sprain of lateral collateral ligament of left knee, subs W19.xxxA Unspecified fall, initial encounter Office Visit 10/19/2018 9:15a [facility] Tiny Castillo, M25.561 Pain in right Of [facility] M.[facility] knee M25.461 Effusion, right knee S83.241A Oth tear of medial meniscus, current injury, r knee, init M23.8x1 Other internal derangements of right knee Office Visit 12/11/2012 9:15a [facility] Barak Cortes, 841.9 Sprains & Of [facility] M.[facility]. Strains Elbow & Forearm Unspec 726.32 Epicondylitis Lateral Office Visit 11/05/2012 2:00p [facility] Barak Cortes, 841.9 Sprains [facility] M.[facility]. Strains Elbow & Forearm Unspec 726.32 Epicondylitis Lateral Plan of Treatment 11/20/2018 - Tiny Castillo M.D.M25.562 Pain in left kneeNew Xrays:MRI Knee Left W/O, Ordered: 11/20/18Follow up:Follow up: after MRIS83.412D Sprain of medial collateral ligament of left knee, [id number] Effusion, left knee
--- NOTE | 2018-12-10 06:43 | ED ---
Throat Pain/Nasal Congestion - HPI Summary HPI Summary: A 23 y/o female presents to [facility] with a chief complaint of neck pain. She says that his pain started out as a sore throat 3-4 days ago but now he has throat pain and neck pain. She denies fevers. She took Percocet at around 22:30 . At triage she rated his pain as a 9/10 in severity. She also reports headaches, body aches, and no cough. The patient takes Celexa in the morning and testosterone at night. She has gone through hormonal changes, no surgical changes. Her LNMP was in June 2017. - History of Current Complaint Chief Complaint: EDThroatPain Time Seen by Provider: 12/10/18 06:36 Hx Obtained From: Patient Onset/Duration: Sudden Onset, Lasting Days, Still Present Severity: Severe Associated Signs And Symptoms: Positive: Negative - cough Cough: None - Allergies/Home Medications Allergies/Adverse Reactions: Allergies Allergy/AdvReac Type Severity Reaction Status Date / Time Penicillins Allergy Hives Verified 12/10/18 06:26 pineapple Allergy Hives Verified 12/10/18 06:26 ENVIRONMENTAL Allergy WATERY Uncoded 12/10/18 06:26 EYES, RUNNY NOSE PMH/Surg Hx/FS Hx/Imm Hx Endocrine/Hematology History: Reports: Other Endocrine/Hematological Disorders - PCOS - rx'd metformin - doesn't take d/t GI SE Denies: Hx Anticoagulant Therapy, Hx Blood Disorders, Hx Diabetes, Hx Thyroid Disease Cardiovascular History: Denies: Hx Hypertension, Hx Pacemaker/ICD, Other Cardiovascular Problems/ Disorders Respiratory History: Reports: Hx Asthma Denies: Hx Chronic Obstructive Pulmonary Disease (COPD), Other Respiratory Problems/Disorders GI History: Reports: Hx Gastroesophageal Reflux Disease Denies: Hx Ulcer, Other GI Disorders Musculoskeletal History: Reports: Hx Tendonitis - RIGHT ELBOW Sensory History: Reports: Hx Contacts or Glasses - GLASSES Denies: Hx Hearing Aid Opthamlomology History: Reports: Hx Contacts or Glasses - GLASSES Neurological History: Denies: Other Neuro Impairments/Disorders Psychiatric History: Reports: Hx Anxiety Denies: Hx Panic Disorder - SOME ANXIETY - Surgical History Surgery Procedure, Year, and Place: APPENEDECTOMY 11/15/11. TONSILLECTOMY Hx Anesthesia Reactions: No Infectious Disease History: No Infectious Disease History: Denies: Hx Clostridium Difficile, Hx Hepatitis, Hx Human Immunodeficiency Virus (HIV), Hx of Known/Suspected MRSA, Hx Shingles, Hx Tuberculosis, Hx Known/ Suspected VRE, Hx Known/Suspected VRSA, History Other Infectious Disease, Traveled Outside the [place] in Last 30 Days - Family History Known Family History: Positive: Cardiac Disease - a. fib, Respiratory Disease - asthma, Seizure Disorder - aunt, Other - variety of cancers - Social History Alcohol Use: Occasionally Hx Substance Use: No Substance Use Type: Reports: None Hx Tobacco Use: Yes Smoking Status (MU): Current Some Day Smoker Have You Smoked in the Last Year: No Review of Systems Negative: Fever Positive: Sore Throat Negative: Cough Positive: Other - positive: body aches Positive: Headache All Other Systems Reviewed And Are Negative: Yes Physical Exam - Summary Physical Exam Summary: Constitutional: Well-developed, Well-nourished, Alert. (-) Distressed Skin: Warm, Dry HENT: Normocephalic; Atraumatic, bilateral ears are normal, exudates Eyes: Conjunctiva normal Neck: Musculoskeletal ROM normal neck. (-) JVD, (-) Stridor, (-) Tracheal deviation Cardio: Rhythm regular, rate normal, Heart sounds normal; Intact distal pulses; symmetric. Pulmonary/Chest wall: Effort normal. (-) Respiratory distress, (-) Wheezes, (-) Rales Abd: Soft, (-) tenderness, (-) Distension, (-) Guarding, (-) Rebound Musculoskeletal: (-) Edema Neuro: Alert, Oriented x3 Psych: Mood and affect Normal Triage Information Reviewed: Yes Vital Signs On Initial Exam: Initial Vitals Temp Pulse Resp BP Pulse Ox 98.4 F 74 16 127/72 99 12/10/18 06:24 12/10/18 06:24 12/10/18 06:24 12/10/18 06:24 12/10/18 06:24 Vital Signs Reviewed: Yes Diagnostics - Vital Signs Vital Signs Temp Pulse Resp BP Pulse Ox 12/10/18 06:24 98.4 F 74 16 127/72 99 - Laboratory Lab Statement: Any lab studies that have been ordered have been reviewed, and results considered in the medical decision making process. EENT Course/Dx - Course Course Of Treatment: A 23 y/o female presents to [facility] with a chief complaint of neck pain. The physical exam revealed bilateral ears are normal, exudates, no stridor, lungs are clear. In the ED course the patient was given Toradol IV and Decadron IV. The patient will be signed out from Dr. Murphy to Dr. Mcclain upon shift change at 07:00 12/10/18 pending lab results and re-eval. - Diagnoses Provider Diagnoses: Pharyngitis, Headache Discharge - Sign-Out/Discharge Documenting (check all that apply): Sign-Out Patient Signing out patient TO: Shashi Mcclain - pending lab results and re-eval - Discharge Plan Condition: Stable Referrals: Timmy LAGUERRE,Randy Chapman [Primary Care Provider] - - Attestation Statements Document Initiated by Scribe: Yes Documenting Scribe: Thien Nelson Provider For Whom Scribe is Documenting (Include Credential): Donovan Murphy MD Scribe Attestation: IThien, scribed for Donovan Murphy MD on 12/10/18 at 0705. Status of Scribe Document: Ready
[2018-12-10] MEDS ORDERED: Ketorolac INJ* 30 MG/ML 1 ML VIAL IM ONE (06:46)
[2018-12-10] MEDS ORDERED: Dexamethasone IV* 4 MG/ML 1 ML (4 MG) IM ONE (06:46)
[2018-12-10 07:06] LABS: Rapid Strep Molecular Negative (Negative)
--- NOTE | 2018-12-10 07:28 | ED ---
Progress - Progress Note Progress Note: Pt is a signout at 0700 on 12/10/[address] Murphy pending further workup. As of 826, the pt is still having a significant amount of discomfort. - Results/Orders Results/Orders: Neck CT shows: NO ACUTE CT PATHOLOGY OF THE NECK. NO LOCULATED FLUID COLLECTION TO SUGGEST ABSCESS. NO APPRECIABLE PHARYNGEAL EDEMA. ED physician has reviewed this report. Re-Evaluation - Re-Evaluation 1st re-eval Re-Evaluation Time: : Change: Unchanged Comment: Pt is still having a significant amount of discomfort. 1026 Change: Improved Comment: Pt is feeling much better, and I discussed the plan of discharge with her. She is agreeable with this plan. There is no meningismus, the patient has full neck ROM, there have been no fevers, diaphoresis, chills, or photophobia. The pt's chief complaint is sore throat, and I do not suspect meningitis. Course/Dx - Course Course Of Treatment: Pt is a signout at 0700 on 12/10/[address] Murphy pending further workup. As of 826, the pt is still having a significant amount of discomfort. Pts lab results show WBC of 14.6, RBC of 4.94, absolute neutrophils of 12.5, and AST of 11. Neck CT shows: NO ACUTE CT PATHOLOGY OF THE NECK. NO LOCULATED FLUID COLLECTION TO SUGGEST ABSCESS. NO APPRECIABLE PHARYNGEAL EDEMA. Pt is feeling much better as of 1026, and I discussed the plan of discharge with her. She is agreeable with this plan. There is no meningismus, the patient has full neck ROM, there have been no fevers, diaphoresis, chills, or photophobia. The pt's chief complaint is sore throat, and I do not suspect meningitis. Her dx will be pharyngitis. She is stable for discharge, and has been given f/u instructions and at-home care instructions. - Diagnoses Provider Diagnoses: Pharyngitis Discharge - Sign-Out/Discharge Documenting (check all that apply): Patient Departure, Receiving Sign-Out Receiving patient FROM: Donovan Murphy Patient Received Moderate/Deep Sedation with Procedure: No - Discharge Plan Condition: Stable Disposition: HOME Patient Education Materials: Pharyngitis (ED) Referrals: Timmy LAGUERRE,Randy Chapman [Primary Care Provider] - Additional Instructions: Please follow up with [facility] or your own primary care provider within the next 2-3 days. Please take Ibuprofen as needed for your pain. RETURN TO THE EMERGENCY DEPARTMENT WITH ANY NEW OR WORSENING SYMPTOMS. - Attestation Statements Document Initiated by Careyibe: Yes Documenting Scribe: Bouchra Garcia Provider For Whom Scribe is Documenting (Include Credential): Shashi Mcclain MD. Scribe Attestation: I, Bouchra Garcia, scribed for Shashi Mcclain MD. on 12/10/18 at 1027. Status of Scribe Document: Ready
[2018-12-10 08:49] LABS: ABS Basophils 0.1 10^3/ul (0-0.2); ABS Eosinophils 0.2 10^3/ul (0-0.6); ABS Lymphocytes 1.2 10^3/ul (1.0-4.8); ABS Monocytes 0.7 10^3/ul (0-0.8); ABS Neutrophils 12.5 10^3/ul (1.5-7.7); Eosinophil % 1.1 %; Hematocrit 42 % (35-47); Hemoglobin 14.1 g/dL (12.0-16.0); Lymphocyte % 8.4 %; Mean Corpuscular HGB Conc 33 g/dL (31-36); Mean Corpuscular Hemoglobin 29 pg (27-31); Mean Corpuscular Volume 86 fL (80-97); Mean Platelet Volume 8.1 fL (7.4-10.4); Platelet Count 233 10^3/uL (150-450); Red Blood Count 4.94 10^6 /uL (3.70-4.87); Red Cell Distribution Width 13 % (10-15); White Blood Count 14.6 10^3/uL (3.5-10.8)
[2018-12-10 09:01] LABS: Activated Partial Thrombo Time 33.4 seconds (26.0-38.0); INR 1.06 (0.82-1.09)
[2018-12-10 09:06] LABS: Albumin/Globulin Ratio 1.3 (1-3); BUN/Creatinine Ratio 12.4 (8-20); Calcium 9.2 mg/dL (8.6-10.3); EGFR African American 94.3 (>60); EGFR Non-African American 77.9 (>60); Globulin 3.2 g/dL (2-4); Potassium 4.4 mmol/L (3.5-5.0); Total Bilirubin 0.4 mg/dL (0.2-1.0); Total Protein 7.2 g/dL (6.4-8.9)
[2018-12-10] MEDS ORDERED: Iohexol 300* (CONTRAST) 10 ML SDV IV ONE (09:13)
[2018-12-10 10:44] VITALS: BP 105/73
[2018-12-11 13:07] LABS: EBV Capsid Ag IgG Ab Negative (Negative); EBV Capsid Ag IgM Ab Negative (Negative); Epstein-Barr Nuclear Antigen Negative (Negative)
== END 2018-12-10 10:44 | disposition home or self-care (01) ==
LOC: ED 06:23
DX: J02.9 Acute pharyngitis, unspecified (principal); R51 Headache; F17.210 Nicotine dependence, cigarettes, uncomplicated; Z88.0 Allergy status to penicillin
CPT/HCPCS: 36415; 70491; 80053; 83605; 85025; 85610; 85730; 86308; 86664; 86665; 87040; 87070; 87651; 96372; 99282; J1100; J1885; Q9967

== ENCOUNTER 2018-12-17 11:34 | Emergency (ER) | payer OTHER ==
[2018-12-17 12:44] VITALS: BP 139/84
--- NOTE | 2018-12-18 08:35 | ED ---
Throat Pain/Nasal Congestion - HPI Summary HPI Summary: Pt. is a 23 y.o female who presents to the ER for ongoing sinus congestion and sore throat for about 2 weeks. Pt. was seen in the ED last week for sore throat and had labs, mono, strep, and ct neck performed. Pt. dx with viral pharyngitis. Pt. states sore throat continues and she feels a lump in throat and trouble swallowing. NO associated sxs of fever, rash, cp, sob, abd. pain, V/ D. Pt. notes recently seen by pcp and rx omeprazole but has not started yet. Pt. notes she frequently eats spicy and acidic foods and ate red pasta sauce last night. Sxs are mild in severity. NO current modifying factors. - History of Current Complaint Chief Complaint: EDThroatPain Time Seen by Provider: 12/17/18 12:10 Hx Obtained From: Patient - Allergies/Home Medications Allergies/Adverse Reactions: Allergies Allergy/AdvReac Type Severity Reaction Status Date / Time Penicillins Allergy Hives Verified 12/17/18 11:46 pineapple Allergy Hives Verified 12/17/18 11:46 ENVIRONMENTAL Allergy WATERY Uncoded 12/10/18 06:26 EYES, RUNNY NOSE Home Medications: Home Medications Citalopram Hydrobromide [Citalopram HBr] 20 mg PO DAILY 12/17/18 [History Confirmed 12/17/18] Ketoconazole 1 applic TOPICAL WEEKLY 12/17/18 [History Confirmed 12/17/18] Omeprazole 20 mg PO DAILY 12/17/18 [History Confirmed 12/17/18] Topiramate 50 mg PO DAILY 12/17/18 [History Confirmed 12/17/18] hydrOXYzine pamoate [Hydroxyzine Pamoate] 25 mg PO BEDTIME 12/17/18 [History Confirmed 12/17/18] PMH/Surg Hx/FS Hx/Imm Hx Previously Healthy: Yes Endocrine/Hematology History: Reports: Other Endocrine/Hematological Disorders - PCOS - rx'd metformin - doesn't take d/t GI SE Denies: Hx Anticoagulant Therapy, Hx Blood Disorders, Hx Diabetes, Hx Thyroid Disease Cardiovascular History: Denies: Hx Hypertension, Hx Pacemaker/ICD, Other Cardiovascular Problems/ Disorders Respiratory History: Reports: Hx Asthma Denies: Hx Chronic Obstructive Pulmonary Disease (COPD), Other Respiratory Problems/Disorders GI History: Reports: Hx Gastroesophageal Reflux Disease Denies: Hx Ulcer, Other GI Disorders History: Denies: Hx Renal Disease Musculoskeletal History: Reports: Hx Tendonitis - RIGHT ELBOW Sensory History: Reports: Hx Contacts or Glasses - GLASSES Denies: Hx Hearing Aid Opthamlomology History: Reports: Hx Contacts or Glasses - GLASSES Neurological History: Denies: Other Neuro Impairments/Disorders Psychiatric History: Reports: Hx Anxiety Denies: Hx Panic Disorder - SOME ANXIETY - Surgical History Surgery Procedure, Year, and Place: APPENEDECTOMY 11/15/11. TONSILLECTOMY Hx Anesthesia Reactions: No Infectious Disease History: No Infectious Disease History: Denies: Hx Clostridium Difficile, Hx Hepatitis, Hx Human Immunodeficiency Virus (HIV), Hx of Known/Suspected MRSA, Hx Shingles, Hx Tuberculosis, Hx Known/ Suspected VRE, Hx Known/Suspected VRSA, History Other Infectious Disease, Traveled Outside the in Last 30 Days - Family History Known Family History: Positive: Cardiac Disease - a. fib, Respiratory Disease - asthma, Seizure Disorder - aunt, Other - variety of cancers, Non-Contributory - Social History Occupation: Employed Full-time Lives: With Family Alcohol Use: Occasionally Hx Substance Use: No Substance Use Type: Reports: None Hx Tobacco Use: Yes Smoking Status (MU): Current Some Day Smoker Have You Smoked in the Last Year: No Review of Systems Constitutional: Negative Negative: Fever, Chills Eyes: Negative Positive: Sore Throat, Nasal Discharge Cardiovascular: Negative Respiratory: Negative Gastrointestinal: Negative Positive: Headache All Other Systems Reviewed And Are Negative: Yes Physical Exam Triage Information Reviewed: Yes Vital Signs On Initial Exam: Initial Vitals Temp Pulse Resp BP Pulse Ox 98.4 F 91 16 116/73 98 12/17/18 11:42 12/17/18 11:42 12/17/18 11:42 12/17/18 11:42 12/17/18 11:42 Vital Signs Reviewed: Yes Appearance: Positive: Well-Appearing - Pt. sitting up in bed in NAD. Skin: Positive: Warm, Dry Head/Face: Positive: Normal Head/Face Inspection Eyes: Positive: Normal, EOMI, HENOK ENT: Positive: Pharynx normal, Nasal congestion, Sinus tenderness. Negative: Pharyngeal erythema, Tonsillar swelling, Tonsillar exudate Neck: Positive: Supple, Nontender, No Lymphadenopathy Respiratory/Lung Sounds: Positive: Clear to Auscultation, Breath Sounds Present Cardiovascular: Positive: Normal, RRR Musculoskeletal: Positive: Normal, Strength/ROM Intact Neurological: Positive: Normal, CN Intact II-III Psychiatric: Positive: Affect/Mood Appropriate Diagnostics - Vital Signs Vital Signs Temp Pulse Resp BP Pulse Ox 12/17/18 12:43 98.3 F 80 18 139/84 99 12/17/18 11:42 98.4 F 91 16 116/73 98 - Laboratory Lab Statement: Any lab studies that have been ordered have been reviewed, and results considered in the medical decision making process. EENT Course/Dx - Course Course Of Treatment: Pt. presenting with ongoing sinus congestion and sore throat. Sinus pressure has been over 2 weeks, consider bacterial infection. Exam of pharynx is unremarkable today. Pt. swallowing solids and liquid without difficulty. Suspect those sxs may be related to untreated acid reflux. Advised pt to start rx omeprazole today. WIll tx sinusitis with doxy (pnc allergy). Close fu with PCP. Instructed on foods to avoid. WIll return to er if sxs change or worsen. - Differential Diagnoses Differential Diagnoses: Dental Abscess, Sinusitis, Tonsilitis - Diagnoses Provider Diagnoses: Sinusitis, GERD (gastroesophageal reflux disease) Discharge - Sign-Out/Discharge Documenting (check all that apply): Patient Departure Patient Received Moderate/Deep Sedation with Procedure: No - Discharge Plan Condition: Good Disposition: HOME Prescriptions: DOXYcycline CAP(*) [DOXYcycline 100MG CAP(*)] 100 mg PO BID #20 cap Patient Education Materials: Sinusitis (ED), Gastroesophageal Reflux Disease ( ED) Referrals: Timmy LAGUERRE,Randy Chapman [Primary Care Provider] - Additional Instructions: Schedule a close follow up appointment with your PCP Take antibiotic as directed Start omeprazole today as directed Stop taking motrin Can take tylenol for pain as directed Avoid acid, spicy, caffeine, smoking, greasy foods Return to ER if symptoms change or worsen - Billing Disposition and Condition Condition: GOOD Disposition: Home
== END 2018-12-17 12:43 | disposition home or self-care (01) ==
LOC: ED 11:34
DX: J32.9 Chronic sinusitis, unspecified (principal); K21.9 Gastro-esophageal reflux disease without esophagitis; F41.9 Anxiety disorder, unspecified; Z88.0 Allergy status to penicillin; Z91.018 Allergy to other foods; Z72.0 Tobacco use
CPT/HCPCS: 99282

== ENCOUNTER 2019-04-12 18:47 | Emergency (ER) | payer BC, MEDICAID ==
--- OUTSIDE RECORDS SUMMARY | 2019-04-12 18:55 | XMS REPORT | Continuity of Care Document ---
:1995 Author Organization [facility] Address [address] [place] [address] Phone Care Team Providers Name Role Phone Jade Johnson NP Unavailable Unavailable [facility], NURSE OR [place] Unavailable Unavailable Allergies, Adverse Reactions, Alerts Substance Reaction Status Penicillins Hives/Skin Rash Active Medications Medication Instructions Dosage Effective Dates Status Comments (start - stop) testosterone inject 1ml by - Active cypionate 200 mg/mL intramuscular every intramuscular oil other week; dispense single-use vial after each injection; Code F testosterone Administer injection - Active cypionate 200 mg/mL weekly as nurse intramuscular oil visit. See other Testosterone order for sig. Zyrtec 10 mg tablet - Active CELEXA (unknown Not Available - Active strength) ALBUTEROL INHALER Not Available - Active (unknown strength) Problems Condition Effective Dates (start - Clinical Status Comments stop) Transsexualism Endocrine disorder, unspecified Endocrine disorder, unspecified Transsexualism Transsexualism Human immunodeficiency virus [HIV] - counseling Endocrine disorder, unspecified Human immunodeficiency virus [HIV] - counseling Endocrine disorder, unspecified Transsexualism Endocrine disorder, unspecified Transsexualism Human immunodeficiency virus [HIV] - counseling Transsexualism Endocrine disorder, unspecified Human immunodeficiency virus [HIV] - counseling Endocrine disorder, unspecified Transsexualism Transsexualism Endocrine disorder, unspecified Endocrine disorder, unspecified Transsexualism Endocrine disorder, unspecified Transsexualism Human immunodeficiency virus [HIV] - counseling Endocrine disorder, unspecified Transsexualism Encounter for screening for human - immunodeficiency virus Transsexualism Endocrine disorder, unspecified Endocrine disorder, unspecified Transsexualism Endocrine disorder, unspecified Transsexualism Endocrine disorder, unspecified Transsexualism Endocrine disorder, unspecified Transsexualism Endocrine disorder, unspecified Transsexualism Transsexualism Endocrine disorder, unspecified Transsexualism Gcswom-ik-xlmy transsexual - Active Procedures Procedure Date IM INJECTION EST TG LAB/INJ/MA Credit Support Specialist ONLY OV Results Test Name Date and Time Measure Units Reference Range Abnormal Flag Status Comments No information Advance Directives Directive Yes / No Effective Date File Name No information Encounters Encounter Practice Location Reason(s) Diagnoses Date Provider Providers Description For Visit Copied on Encounter [facility] Trans[facility]ismEn Elizabeth Hansen. [facility] [place] docrine [address] Provider: Southern disorder, [address], [place], [place], [address], [place], [address], [address] [place]. [address], [address], [place], [place], [id number], [phone].Cons [place] ulting tel:+ Provider: [id number] NURSE [place] [facility]. [facility] Bj Horta. [facility] [place] disorder, [address] Provider: Southern unspecifiedTrans [address], [place], [place], [address]. [place], [address] tel:[phone] [address], [place], [place], [address]. [id number], tel:+ [place] [phone] tel:+ sulting [phone] Provider: NURSE [place] [facility] TranssexualismHu Bj Horta. [facility] [place] man [address] Provider: [place] immunodeficiency [address], [place], [place] [[place], [address]. [place], [address], [address] counseling tel:+7 [address], [place], [place], [address]. [id number], tel:+ [place] [phone] tel:+ sulting [phone] Provider: NURSE [place] [facility]. [facility] Hardy [facility] [place] disorder, 2 [address]. 620 Provider: Southern unspecifiedHuman [address], [place] immunodeficiency [place], [place], [place], 620 virus [HIV] [address], [place]. [address] counseling tel:[phone], St, [place], [address] [place], [address]. [id number], tel:+ US [phone] tel:[phone] [facility] Dec- [place]. [facility] [place] disorder, [address] Provider: Southern unspecifiedTrans [address], [place], [place], [address], [place], [address], [address] [place]. [address], St, [place], [place], [address]. [id number], [place] tel:[phone] [facility] Sep-0 [place]. [facility] [place] disorder, 2 [address] Provider: Southern unspecifiedTrans [address], [place], [place], [address], [place], [address], [address] [place]. [address], St, [place], [place], [address]. [id number], [place] tel:[phone] [facility] Human May-2 [place]. [facility] [place] immunodeficiency 0- [address] Provider: Southern virus [HIV] [address], [place], [place], [address], [place], [address] [place], 620 exualism [place]. [address], St, [place], [place], [id number], [address].Cons [place] ulting tel:[phone] Provider: [id number] NURSE [place] [facility]. [facility] May-0 Hardy [facility] [place] disorder, 6 Pauline. 620 Provider: Southern unspecifiedHuman [address], [place]ine [place] immunodeficiency [place], [place], [place] Marrufo, [facility], 620 virus [HIV] [address], [place]. [address] counseling tel:[phone], St, [place], [address] [place], [place], [address]. [id number], tel:[phone] [place] [phone] tel:+ [phone] [facility] Nov-2 Raphaelidis [facility] [place] disorder, 1 Abigail. [address] W Provider: Southern unspecifiedTrans [address], Abigail [place] sexualism [place], [place], Dmitriy [facility], 620 [address]. s, [address] tel:+[address], St, [place], [address] [place], [place], [address]. [id number], tel:+[phone] [place] [phone] tel:+ sulting [phone] Provider: NURSE [place] [facility]. [facility] TranssexualismEn Nov0 [place]. [facility] [place] docrine [address] Provider: Southern disorder, [address], [place], [place], [address], [place], [address] [place], [address] [place]. [address], St, [place], [place], [id number], [address].Cons [place] ulting tel:[phone] Provider: [id number] NURSE OR [place] [facility]. [facility] Oct-2 [place]. [facility] [place] disorder, [address] Provider: Southern unspecifiedTrans [address], [place], [place], [address], [place], [address] [place], [address] [place]. [address], St, [place], [place], [id number], [address].Cons [place] ulting tel:[phone] Provider: [id number] NURSE [place] [facility]. [facility] End[facility] Mar- Hardy [facility] [place] disorder, [address]. 620 Provider: Southern unspecifiedTrans [address], [place]ine [place] sexualism [place], [place] J, [place], [address], [place]. [address] tel:[phone], St, [place], [address] [place], [address]. [id number], tel:+[phone] [place] [phone] tel:[phone] sulting [phone] Provider: NURSE OR [place] [facility]. [facility] Human Vernon [facility] [place] immunodeficiency 7 [address]. [address] W Provider: Southern virus [HIV] [address], Abigail [place] counselingEndocr [place], [place], Dmitriy [facility], 620 ine disorder, [address]. s, [address] unspecifiedTrans tel:+[phone], St, [place], sexualismEncount [address] [place], [address]. [id number], for human tel:+60 [place] immunodeficiency [phone] tel:[phone] virus [phone] [facility] TranssexualismEn Elizabeth Hansen. [facility] [place] docrine 9 [address] Provider: Southern disorder, [address], [place], [place], [address], [place], [address] [place], [address] [place]. [address], St, [place], [place], [address]. [id number], [place] tel:[phone] [facility] Jul-2 Elizabeth Jade. [facility] [place] disorder, 0- [address] Provider: Southern unspecifiedTrans [address], [place], [place], [address], [place], [address] [place], [address] [place]. [address], St, [place], [place], [address]. [id number], [place] tel:[phone] [facility] Jul- Elizabeth Neumanna. [facility] [place] disorder, 3 [address] Provider: Southern unspecifiedTrans [address], [place], [place], [address], [place], [address] [place], [address] [place]. [address], St, [place], [place], [id number], [address].Cons [place] ulting tel:[phone] Provider: [id number] NURSE OR [place] [facility]. [facility] Jul-0 [place]. [facility] [place] disorder, 6- [address] Provider: Southern unspecifiedTrans [address], [place], [place], [address], [place], [address] [place], [address] [place]. [address], St, [place], [place], [id number], [address].Cons [place] ulting tel:[phone] Provider: [id number] NURSE [place] [facility]. [facility] Jun-3 Raphaelidis [facility] [place] disorder, 0-201 [address]. [address] Provider: Southern unspecifiedTrans [address], Abigail [place] sexualism [place], Raphaelidi [facility], [address]. s, [address] tel:+[address], St, [place], [address] [place], [address]. [id number], tel:+ [place] [phone] tel: sulting [phone] Provider: NURSE OR [place] [facility]. [facility] Jun-2 Elizabeth Hansen. [facility] [place] disorder, 3- [address] Provider: Southern unspecifiedTrans [address], [place], [place], [address], [place], [address] [place], [address] [place]. [address], St, [place], [place], [id number], [address].Cons [place] ulting tel:+ Provider: [id number] NURSE OR [place] [facility]. [facility] Transsexualism Jun- Raphaelidis [facility] [place] 9-201 [address]. [address] [place] [address], [place], [place], [place], [address] [address]. [address] tel:+[phone] St, [place], [address] [place], [id number], [place] tel:+ [phone] [facility] Jun-0 Raphaelidis [facility] [place] disorder, 9-201 [address]. [address] Provider: Southern unspecifiedTrans [address], [place] sexualism [place], [place], [place], [address] [place], 620 [address]. [address] [address] [place] tel:[phone] , , [place], [address] [place], [address]. [id number], tel:[phone] Family History Family Member Diagnosis Age At Onset No information Immunizations Vaccine Date Status Comments No information Payers Payer name Insurance type Covered republican ID Authorization(s) No information Social History Type Description Quantity Date Captured Comments Alcohol Use Details Unknown Caffeine Use Details Unknown Tobacco Use Status Smoking Status Light tobacco smoker Sex Male Vital Signs Date / Height Weight BMI Pulse Blood Temperature Respiratory Body Head BMI Pulse Inhaled Time: Rate Pressure Rate Surface Circumference percentile Ox [place] Area No information Chief Complaint And Reason For Visit No information Reason For Referral Reason For Referral No information Plan Of Treatment Date Type Action Status Goal Tobacco cessation counseling completed Goal Tobacco cessation counseling completed Goal Tobacco cessation counseling completed Appointment [place] [facility] History Of Present Illness Encounter Date Complaint History Of Present Illness No information Functional Status Date Functional Assessment No information Medications Administered Medication Instructions Dosage Effective Dates (start - stop) Status Comments No information Instructions Date Instruction Additional Information No information Assessments Type Assessment Date assessment Transsexualism assessment Endocrine disorder, unspecified Goals Health Concern Goal Type Priority Status Date No information Medical Equipment Description Device [place] Device Identifier Effective Dates (start - stop ) Status No information Mental Status Date Cognitive Assessment No information Health Concerns Observation Date No information Concern Status Date No information
[2019-04-12] MEDS ORDERED: Ondansetron ODT TAB* 4 MG PO ONE (20:43)
--- NOTE | 2019-04-12 21:34 | UC ---
UC General HPI - History of Current Complaint Chief Complaint: UCRespiratory Stated Complaint: VOMITING Time Seen by Provider: 04/12/19 20:42 Hx Obtained From: Patient Pain Intensity: 6 - Allergy/Home Medications Allergies/Adverse Reactions: Allergies Allergy/AdvReac Type Severity Reaction Status Date / Time Penicillins Allergy Hives Verified 04/12/19 19:36 pineapple Allergy Hives Verified 04/12/19 19:36 ENVIRONMENTAL Allergy WATERY Uncoded 12/10/18 06:26 EYES, RUNNY NOSE Home Medications: Home Medications Albuterol/Ipratropium NEB.CLAUDINE* [Duoneb (Albuterol 2.5 MG/Ipratropium 0.5 MG)] 3 ml INH Q6HR 04/12/19 [History Confirmed 04/12/19] PMH/Surg Hx/FS Hx/Imm Hx Other History Of: Negative For: Anticoagulant Therapy - Surgical History Surgical History: Yes Surgery Procedure, Year, and Place: APPENEDECTOMY 11/15/11. TONSILLECTOMY - Family History Known Family History: Positive: Cardiac Disease - a. fib, Respiratory Disease - asthma, Seizure Disorder - aunt, Other - variety of cancers, Non-Contributory - Social History Alcohol Use: Occasionally Substance Use Type: None Smoking Status (MU): Light Every Day Tobacco Smoker Have You Smoked in the Last Year: No Household Exposure Type: Cigarettes Physical Exam Vital Signs: Initial Vital Signs Temp 98.5 F 04/12/19 19:29 Pulse 70 04/12/19 19:29 Resp 16 04/12/19 19:29 BP 110/62 04/12/19 19:29 Pulse Ox 99 04/12/19 19:29 Course/Dx - Differential Dx - Multi-Symptom Differential Diagnoses: Other - gastroenteritis, bronchitis, pneumonia, SSRI withdrawal - Diagnoses Provider Diagnosis: Cough, Nausea & vomiting Discharge ED - Sign-Out/Discharge Documenting (check all that apply): Patient Departure All imaging exams completed and their final reports reviewed: No Studies - Discharge Plan Condition: Stable Disposition: HOME Prescriptions: Citalopram TAB* [Celexa TAB*] 30 mg PO DAILY #9 tab Patient Education Materials: Acute Nausea and Vomiting (ED), Viral Syndrome (ED ) Referrals: Timmy LAGUERRE,Randy Chapman [Primary Care Provider] - 2 Days (If no improvement in symptoms) Additional Instructions: You were given a medication called ondansetron (Zofran) in the clinic for a nausea with improvement. I suspect that your symptoms, especially the cough, is likely a viral infection however the nausea and vomiting could be withdrawal symptoms from your citalopram especially with a report of a panic attack earlier. I have sent and a short-term prescription for your citalopram so that she may restart this until you are able to get her medications back or follow- up with your primary care provider. Use an hlnx-chm-htqmmrt cough suppressant such as Robitussin-DM as needed for cough. Drink plenty of fluids. Try to drink small amounts frequently to avoid filling your stomach to full which can cause vomiting. If you are still having vomiting, start with a clear liquid diet including soup broths, Jello, popsicles, and codie-shan with carbonation stirred out of it. You may then advance to a bland diet including saltine crackers, toast, bananas , rice, and applesauce. Then return to a normal diet as tolerated. Follow up here or with your primary care provider in 2-3 days if symptoms persist. Seek immediate medical attention in the emergency room if you develop fever greater than 100.5 F, have severe abdominal pain, persistent vomiting, blood in your vomit or stool, or any worsening of symptoms. - Billing Disposition and Condition Condition: STABLE Disposition: Home
[2019-04-12 21:46] VITALS: BP 117/58
== END 2019-04-12 21:59 | disposition home or self-care (01) ==
LOC: UCEAST 18:47
DX: R11.2 Nausea with vomiting, unspecified (principal); F17.210 Nicotine dependence, cigarettes, uncomplicated; R05 Cough; Z88.0 Allergy status to penicillin; Z91.018 Allergy to other foods; Z91.09 Other allergy status, other than to drugs and biological substances
CPT/HCPCS: 99212; A9270-GY; G0463

== ENCOUNTER 2019-05-20 22:47 | Emergency (ER) | payer MEDICAID, OTHER ==
[2019-05-20 23:03] VITALS: BP 130/75
--- OUTSIDE RECORDS SUMMARY | 2019-05-20 23:13 | XMS REPORT | Continuity of Care Document ---
:1995 External Reference #:[id number] Author Name Tiny Castillo M.D. (transmitted by agent of provider Hannah Walker) Address [address] [facility] [place] [address] Care Team Providers Name Role Phone Patient's Choice Care Team Information Log Driver Unavailable Problems Active Problems Provider Date Lateral epicondylitis Barak Cortes M.D. Onset: 06/28/2013 Sprain of medial collateral ligament of knee Tiny Castillo M.D. Onset: 2018 Sprain of lateral collateral ligament of knee Tiny Castillo M.D. Onset: 11/04 Localized, primary osteoarthritis Tiny Castillo M.D. Onset: 12/30/2018 Social History Type Date Description Comments Sex Female ETOH Use Never used alcohol Tobacco Use Start: Unknown Patient is a current smoker, smokes every day Smoking Status Reviewed: 04/26/19 Patient is a current smoker, smokes every [...] 12.5mg/Act grams) to thigh (1%) Gel daily Prilosec OTC Unknown Vitamin D Unknown 1000Unit Tablets Immunizations Description No Information Available Vital Signs Date Vital Result Comment 04/26/2019 9:37am Height 68 inches 5'8" Weight 250.00 lb BP Systolic 130 mmHg BP Diastolic 78 mmHg Respiratory Rate 16 /min Body Temperature 97.5 F Pain Level 7 BMI (Body Mass Index) 38.0 kg/m2 12/30/2018 9:54am Height 68 inches 5'8" Weight 250.00 lb BP Systolic 126 mmHg BP Diastolic 90 mmHg Respiratory Rate 16 /min Body Temperature 96.6 F Pain Level 4 BMI (Body Mass Index) 38.0 kg/m2 Results Description No Information Available Procedures Description No Information Available Medical Devices Description No Information Available Encounters Type Date Location Provider Dx Diagnosis Office Visit 12/30/2018 [facility], M25.562 Pain in left knee 9:45a at [place] M.D. M25.462 Effusion, left knee M17.12 Unilateral primary osteoarthritis, left knee Office Visit 11/20/2018 3:30p [facility], M25.562 Pain in left at [place] M.D. knee S83.412D Sprain of medial collateral ligament of left knee, subs M25.462 Effusion, left knee M23.8x2 Other internal derangements of left knee Office Visit 11/04/2018 9:00a Yolonaseem Castillo, M25.562 Pain in left at [place] M.D. knee M25.462 Effusion, left knee S83.412D Sprain of medial collateral ligament of left knee, subs S83.422D Sprain of lateral collateral ligament of left knee, subs W19.xxxA Unspecified fall, initial encounter Assessments Date Code Description Provider 04/26/2019 M25.562 Pain in left knee Tiny Castillo M.D. 04/26/2019 M25.462 Effusion, left knee Tiny Castillo M.D. 04/26/2019 M17.12 Unilateral primary osteoarthritis, left knee Tiny Castillo M.D. 04/26/2019 S83.412D Sprain of medial collateral ligament of left Tiny Castillo M.D. knee, subsequen 12/30/2018 M25.562 Pain in left knee Tiny Castillo M.D. 12/30/2018 M25.462 Effusion, left knee Tiny Castillo M.D. 12/30/2018 M17.12 Unilateral primary osteoarthritis, left knee Tiny Castillo M.D. 11/20/2018 M25.562 Pain in left knee Tiny Castillo M.D. 11/20/2018 S83.412D Sprain of medial collateral ligament of left Tiny Castillo M.D. knee, subsequen 11/20/2018 M25.462 Effusion, left knee Tiny Castillo M.D. 11/20/2018 M23.8x2 Other internal derangements of left knee Tiny Castillo M.D. 11/04/2018 M25.562 Pain in left knee Tiny Castillo M.D. 11/04/2018 M25.462 Effusion, left knee Tiny Castillo M.D. 11/04/2018 S83.412D Sprain of medial collateral ligament of left Tiny Castillo M.D. knee, subsequen 11/04/2018 S83.422D Sprain of lateral collateral ligament of left Tiny Castillo M.D. knee, subseque 11/04/2018 W19.xxxA counter Tiny Castillo M.D. Plan of Treatment 04/26/2019 - Tiny Castillo M.D.M25.562 Pain in left kneeFollow up:Follow up: As zwyrpcY28.462 Effusion, left kneeM17.12 Unilateral primary osteoarthritis, left kneeS83.412D Sprain of medial collateral ligament of left knee, subsequen Functional Status Description No Information Available Mental Status Description No Information Available Referrals Description No Information Available
--- OUTSIDE RECORDS SUMMARY | 2019-05-20 23:13 | XMS REPORT | Continuity of Care Document ---
:1995 Author Organization [facility] Address [address] [place] [address] Phone Care Team Providers Name Role Phone Abigail Junior NP Unavailable Unavailable Allergies, Adverse Reactions, Alerts Substance Reaction Status Penicillins Hives/Skin Rash Active Medications Medication Instructions Dosage Effective Status Comments Dates (start - stop) testosterone Administer - Active cypionate 200 mg/mL injection weekly intramuscular oil as nurse visit. See other Testosterone order for sig. testosterone inject 1ml by - Active cypionate 200 mg/mL intramuscular intramuscular oil every other week; dispense single-use vial after each injection; Code F Zyrtec 10 mg tablet - Active CELEXA (unknown Not Available - Active strength) ALBUTEROL INHALER Not Available - Active (unknown strength) testosterone Administer - No Longer cypionate 200 mg/mL injection weekly Active intramuscular oil as nurse visit. See other Testosterone order for sig. 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 [address], [place], [place], [facility], [address] [address] tel:[phone] St, [place], [address] [place], [id number], [place] tel:[phone] [facility]En Feb-0 [place]. [facility] [place] docrine [address] Provider: Southern disorder, [address], [place], [place], [address], [place], 620 [facility], [facility] [place]. [address], [address], [place], [id number], [id number].Cons [place] ulting tel:[phone] Provider: [id number] [place] [place] [facility] Bj Horta. [facility] [place] disorder, [address] Provider: [address]Trans [address], [place], [place], [address]. [place], 620 [facility], [facility] tel:[phone] [address], [place], [place], [address]. [id number], tel:[phone] [place] [phone] tel:[phone] [facility] [phone] Provider: [place]URSE [place] [facility] TranssexualismHu Bj Horta. [facility] [place] man [address] Provider: Southern immunodeficiency [address], [place], [place], [address]. [place], [address] [place], [address] counseling tel:[phone], [place], [place], [address]. [id number], tel:[phone] [place] [phone] tel:[phone] [facility] [phone] Provider: [place]URSE [place] [facility] Hardy [facility]erring [facility] [place] disorder, Pauline. 620 Provider: [facility] unspecifiedHuman [address], [place] immunodeficiency [place], [place] J, [facility], 620 virus [HIV] [address], [place]. [address] counseling tel:[phone], [address], [place], [address] [place], [place], [address]. [id number], tel:[phone] tel:[phone] [facility] Eliazbeth Hansen. [facility] [place] disorder, [address] Provider: Southern [address]Trans [address], [place], [place], [address], [place], [address] [place], [address] [place]. [address], St, [place], [place], [address]. [id number], [place] tel:[phone] [facility] 0 Elizabeth Hansen. [facility] [place] disorder, [address] Provider: Southern unspecifiedTrans [address], [place], [place], [address], [place], [address] [place], 620 [place]. [address], St, [place], [place], [address]. [id number], [place] tel:[phone] [facility] Human Dec-2 Elziabeth Hansen. [facility] [place] immunodeficiency [address] Provider: Southern virus [HIV] [address] St, [place], [place], [address], [place], [address] [place], 620 exualism [place]. [address], St, [place], [id number], [address].Cons [place] ulting tel:[phone] Provider: [id number] [facility] Dec- Hardy [facility] [place] disorder, Pauline. 620 Provider: Southern unspecifiedHuman [address], [place]ine [place] immunodeficiency [place], [place], [place], 620 virus [HIV] [address], [place]. [address] counseling tel:+[address], St, [place], [address] [place], [address]. [id number], tel:[phone] tel:[phone] [facility] Nov- Raphaelidis [facility] [place] disorder, Abigail. 620 W Provider: Southern unspecifiedTrans [address], Abigail [place] sexualism [place], [place]hael[place], [address]. s, [address] tel:[address], St, [place], [address] [place], [address]. [id number], tel:+ [place] [phone] tel:[phone] sulting [phone] Provider: [facility]URSE [place] [facility] TranssexualismEn Nov-0 Elizabeth Hansen. [facility] [place] docrine [address] Provider: Southern disorder, [address], [place], [place], [address], [place], [address] [place], 620 [place]. [address], St, [place], [place], [id number], [address].Cons [place] ulting tel:[phone] Provider: [id number] [facility] [place] [facility] Oct- Elizabeth Hansen. [facility] [place] disorder, [address] Provider: Southern unspecifiedTrans [address], [place], [place], [address], [place], [address] [place], 620 [place]. [address], St, [place], [place], [id number], [address].Cons [place] ulting tel:[phone] Provider: [id number] [facility] Hardy Referring [facility] [place] disorder, 1- Pauline. 620 Provider: Southern unspecifiedTrans [address], [place], [place], [facility], [address], [place]. [address] tel:[phone] St, [place], [address] [place], [address]. [id number], tel:[phone] [place] [phone] tel:[phone] sulting [phone] Provider: [facility]URSE [place] [facility] Human Raphaelmiguel Referring [facility] [place] immunodeficiency Abigail. 620 W Provider: Southern virus [HIV] [address], Abigail [place] counselingEndocr [place], Raphdavion [facility], 620 ine disorder, [address]. s, [address] unspecifiedTrans tel:+[address], St, [place], sexualismEncount [address] [place], [address]. [id number], for human tel:+ [place] [phone] tel:[phone] [facility] TranssexualismEn Elizabeth Hansen. [facility] [place] docrine 9 [address] Provider: Southern disorder, [address], [place], [place], [address], [place], 620 [facility], [address] [place]. [address], St, [place], [place], [address]. [id number], [place] tel:[phone] [facility]ocrine Jul-2 Elizabeth Hansen. [facility] [place] disorder, 0-201 [address] Provider: Southern unspecifiedTrans [address], [place], [place], [address], [place], [address] [place], 620 [place]. [address], St, [place], [place], [address]. [id number], [place] tel:[phone] [facility] Jul- Elizabeth Hansen. [facility] [place] disorder, 3 [address] Provider: Southern unspecifiedTrans [address], [place], [place], [address], [place], [address] [place], 620 [place]. [address], St, [place], [place], [id number], [address].Cons [place] ulting tel:[phone] Provider: [id number] [facility] [place] [facility] Jul-0 Elizabeth Hansen. [facility] [place] disorder, 6 [address] Provider: Southern [address]Trans [address], [place], [place], [address], [place], [address] [place], 620 [place]. [address], St, [place], [place], [id number], [address].Cons [place] ulting tel:[phone] Provider: [id number] [facility] [place] [facility] Vernon Referring [facility] [place] disorder, 0-201 Abigail. [address] W Provider: Southern unspecifiedTrans [address], Abigail [place] sexual[place], [place], [address]. s, [address] tel:[phone] [address], St, [place], [address] [place], [address]. [id number], tel:[phone] [place] [phone] tel:[phone] sulting [phone] Provider: [facility]URSE [place] [facility] Elizabeth Hansen. [facility] [place] disorder, [address] Provider: Southern [address]Trans [address], [place], [place], [address], [place], [address] [place], 620 [place]. [address], St, [place], [place], [id number], [address].Cons [place] ulting tel:[phone] Provider: [id number] [facility] [place] [facility] Trans[facility]ism [facility] [place] 9-201 Abigail. [address], [place], [place], [address]. [address] tel:[phone] [facility], [address] [place], [id number], [place] tel:[phone] [facility] Vernon Referring [facility] [place] disorder, 9-201 Abigail. 620 W Provider: Priscila unspecifiedTrans [address], [place], [place], 620 [place], [address] [address]. [address] tel:[phone] St, St, [place], [address] [place], [address]. [id number], tel:[phone] Family History Family Member Diagnosis Age At Onset No information Immunizations Vaccine Date Status Comments No information Payers Payer name Insurance type Covered alliance party ID Authorization(s) No information Social History Type [...] counseling completed Goal Tobacco cessation counseling completed History Of Present Illness Encounter Date Complaint History Of Present Illness No information Functional Status Date Functional Assessment No information Medications Administered Medication Instructions Dosage Effective Dates (start - stop) Status Comments No information Instructions Date Instruction Additional Information No information Assessments Type Assessment Date No information Goals Health Concern Goal Type Priority Status Date No information Medical Equipment Description Device [place] Device Identifier Effective Dates (start - stop ) Status No information Mental Status Date Cognitive Assessment No information Health Concerns Observation Date No information Concern Status Date No information
--- NOTE | 2019-05-21 00:26 | ED ---
Laceration/Wound HPI - HPI Summary HPI Summary: This pt is a 24 Y/O M presenting to [facility] with a CC of cutting his R index finger while working and currently rates the pain a 3/10 in severity. He states that he cut his hand on a grill while reaching underneath to grab something at 2130. He states that he applied a pressure dressing immediately. He denies any loss of sensation, tingling, CP, SOB, headaches, and N/V. He states that he is unsure if he has received his tetanus vaccine. He has no pertinent PMHx. He has no aggravating or alleviating factors. - History of Current Complaint Stated Complaint: RT INDEX FINGER LACERATION PER PT Time Seen by Provider: 05/21/19 00:19 Hx Obtained From: Patient Mechanism of Injury: Other - cut underneath grill Onset/Duration: Sudden Onset, Still Present Aggravating: Nothing Alleviating: Nothing Timing: Constant Onset Severity: Mild Current Severity: Mild Pain Intensity: 3 Pain Scale Used: 0-10 Numeric Associated Signs & Symptoms: Negative - loss of sensation, tingling, CP, SOB, headaches, and N/V, Pain - Allergy/Home Medications Allergies/Adverse Reactions: Allergies Allergy/AdvReac Type Severity Reaction Status Date / Time Penicillins Allergy Hives Verified 05/20/19 23:03 pineapple Allergy Hives Verified 05/20/19 23:03 ENVIRONMENTAL Allergy WATERY Uncoded 05/20/19 23:03 EYES, RUNNY NOSE PMH/Surg Hx/FS Hx/Imm Hx Previously Healthy: Yes Endocrine/Hematology History: Reports: Other Endocrine/Hematological Disorders - PCOS - rx'd metformin - doesn't take d/t GI SE Denies: Hx Anticoagulant Therapy, Hx Blood Disorders, Hx Diabetes, Hx Thyroid Disease Cardiovascular History: Denies: Hx Hypertension, Hx Pacemaker/ICD, Other Cardiovascular Problems/ Disorders Respiratory History: Reports: Hx Asthma Denies: Hx Chronic Obstructive Pulmonary Disease (COPD), Other Respiratory Problems/Disorders GI History: Reports: Hx Gastroesophageal Reflux Disease Denies: Hx Ulcer, Other GI Disorders History: Denies: Hx Renal Disease Musculoskeletal History: Reports: Hx Tendonitis - RIGHT ELBOW Sensory History: Reports: Hx Contacts or Glasses - GLASSES Denies: Hx Hearing Aid Opthamlomology History: Reports: Hx Contacts or Glasses - GLASSES Neurological History: Denies: Other Neuro Impairments/Disorders Psychiatric History: Reports: Hx Anxiety Denies: Hx Panic Disorder - SOME ANXIETY - Cancer History Hx Chemotherapy: No Hx Radiation Therapy: No - Surgical History Surgical History: Yes Surgery Procedure, Year, and Place: APPENEDECTOMY 11/15/11. TONSILLECTOMY Hx Anesthesia Reactions: No - Immunization History Immunizations Up to Date: Yes Infectious Disease History: No Infectious Disease History: Denies: Hx Clostridium Difficile, Hx Hepatitis, Hx Human Immunodeficiency Virus (HIV), Hx of Known/Suspected MRSA, Hx Shingles, Hx Tuberculosis, Hx Known/ Suspected VRE, Hx Known/Suspected VRSA, History Other Infectious Disease, Traveled Outside the [place] in Last 30 Days - Family History Known Family History: Positive: Cardiac Disease - a. fib, Respiratory Disease - asthma, Seizure Disorder - aunt, Other - variety of cancers, Non-Contributory - Social History Occupation: Employed Part-time Lives: With Family Alcohol Use: Occasionally Alcohol Amount: 1-2 beers every once in a while Hx Substance Use: No Substance Use Type: Reports: None Hx Tobacco Use: Yes Smoking Status (MU): Light Every Day Tobacco Smoker Type: Cigarettes Amount Used/How Often: 7 cigarettes a day Have You Smoked in the Last Year: No Review of Systems - ROS Summary Review of Systems Summary: Home Medications Medication Instructions Recorded Confirmed Type Albuterol HFA INHALER* [Ventolin 2 puff INH Q4HR 10/28/12 04/12/19 History HFA Inhaler*] Testosterone Cypionate 200 mg IM SEE INSTRUCTIONS #1 vial 07/08/18 04/12/19 Rx MDD 1 Ketoconazole 1 applic TOPICAL WEEKLY 12/17/18 04/12/19 History Omeprazole 20 mg PO DAILY 12/17/18 04/12/19 History hydrOXYzine pamoate [Hydroxyzine 25 mg PO BEDTIME 12/17/18 04/12/19 History Pamoate] Albuterol/Ipratropium NEB.CLAUDINE* 3 ml INH Q6HR 04/12/19 04/12/19 History [Duoneb (Albuterol 2.5 MG/Ipratropium 0.5 MG)] Citalopram TAB* [Celexa TAB*] 30 mg PO DAILY #9 tab 04/12/19 Rx Negative: Chest Pain Negative: Shortness Of Breath Negative: Vomiting, Nausea Skin: Other - laceration to R index finger Neurological: Negative - tingling Negative: Headache, Numbness All Other Systems Reviewed And Are Negative: Yes Physical Exam - Summary Physical Exam Summary: General: Well-developed, Well-nourished male. No acute distress. HEENT: Normocephalic, Atraumatic. Eyes: Conjuctiva normal, PERRL. Ears: TMs within normal limits. Nares: (-) discharge, (-) erythema. Oropharynx: Clear, mucous membranes moist, (-) exudates. Neck: Soft, FROM, (-) lymphadenopathy, (-) thyromegaly, (-) JVD. Cardiovascular: Normal sinus rhythm, (-) murmur. Lungs: Clear to auscultation bilaterally (-) wheezes, (-) rales, (-) rhonchi. Abdomen: Soft, non-tender, non-distended, (-) organomegaly, normal bowel sounds. Back: (-) CVA tenderness Extremities: No edema. 6 mm laceration to the 2nd R index finger without active bleeding and nail involvement. Skin: Warm, dry, (-) rash. Neuro: Alert and oriented x3, no focal deficits. Psychiatric: Mood normal, affect normal. Triage Information Reviewed: Yes Vital Signs On Initial Exam: Initial Vitals Temp Pulse Resp BP Pulse Ox 98.2 F 72 16 130/75 98 05/20/19 23:00 05/20/19 23:00 05/20/19 23:00 05/20/19 23:00 05/20/19 23:00 Vital Signs Reviewed: Yes Procedures - Sedation Patient Received Moderate/Deep Sedation with Procedure: No - Laceration/Wound Repair 1 Location: Other - R index finger Description: Linear Length, Depth and Shape: 6 mm, distal 2nd finger Irrigated w/ Saline (ccs): 100 Laceration/Wound Explored: clean Closure: SteriStrips Layer Closure?: Yes Sterile Dressing Applied?: Yes Diagnostics - Vital Signs Vital Signs Temp Pulse Resp BP Pulse Ox 05/20/19 23:00 98.2 F 72 16 130/75 98 - Laboratory Lab Statement: Any lab studies that have been ordered have been reviewed, and results considered in the medical decision making process. 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 bleeding controlled, tetanus was given last year. steri-strips applied and patient off work for 24 hours, wound care outlined in written discharge instructions. - Clinical Impression Provider Diagnoses: Finger laceration Discharge ED - Sign-Out/Discharge Documenting (check all that apply): Patient Departure - discharge - Discharge Plan Condition: Stable Disposition: HOME Patient Education Materials: Finger Laceration (ED), Steristrips (ED) Forms: *Work Release Referrals: Timmy LAGUERRE,Randy Chapman [Primary Care Provider] - 2 Days Additional Instructions: PLEASE FOLLOW UP WITH YOUR PRIMARY CARE PROVIDER IN 1-3 DAYS AND RETURN TO THE EMERGENCY DEPARTMENT WITH ANY NEW OR WORSENING SYMPTOMS. Avoid getting water on your steristrips for the next 2 days. - Billing Disposition and Condition Condition: STABLE Disposition: Home - Attestation Statements Document Initiated by Carla: Yes Documenting Scribe: Floyd Pierre Provider For Whom Carla is Documenting (Include Credential): Katheryn Banegas MD Scribe Attestation: Floyd David, scribed for Katheryn Banegas MD on 05/21/19 at 0041. Scribe Documentation Reviewed: Yes Provider Attestation: The documentation as recorded by the Floyd monique accurately reflects the service I personally performed and the decisions made by , Katheryn Banegas MD Status of Scribe Document: Viewed
== END 2019-05-21 00:30 | disposition home or self-care (01) ==
LOC: ED 22:47
DX: S61.210A Laceration without foreign body of right index finger without damage to nail, initial encounter (principal); W26.8XXA Contact with other sharp object(s), not elsewhere classified, initial encounter; Y93.89 Activity, other specified; Y92.9 Unspecified place or not applicable; Y99.0 Civilian activity done for income or pay; J45.909 Unspecified asthma, uncomplicated; K21.9 Gastro-esophageal reflux disease without esophagitis; Z88.0 Allergy status to penicillin; Z91.018 Allergy to other foods; Z87.891 Personal history of nicotine dependence
CPT/HCPCS: 99281

== ENCOUNTER 2019-08-30 18:11 | Emergency (ER) | payer BC, OTHER ==
--- OUTSIDE RECORDS SUMMARY | 2019-08-30 18:25 | XMS REPORT | Continuity of Care Document ---
:1995 Author Organization [facility] Address [address] [place] [address] Phone Care Team Providers Name Role Phone Hardy Pauline JAMES Unavailable Unavailable Allergies, Adverse Reactions, Alerts Substance Reaction Status Penicillins Hives/Skin Rash Active Medications Medication Instructions Dosage Effective Status Comments Dates (start - stop) testosterone inject 1ml by - Active cypionate 200 mg/mL intramuscular intramuscular oil every other week; dispense single-use vial after each injection; Code F testosterone Administer - Active cypionate 200 mg/mL injection weekly intramuscular oil as nurse visit. See other Testosterone order for sig. Zyrtec 10 mg tablet - Active CELEXA (unknown Not Available - Active strength) ALBUTEROL INHALER Not Available - Active (unknown strength) testosterone inject 1ml by - No Longer cypionate 200 mg/mL intramuscular Active intramuscular oil every other week; dispense single-use vial after each injection; Code F Problems Condition Effective Dates (start - Clinical [...] unspecified Transsexualism Transsexualism Endocrine disorder, unspecified Transsexualism Vwhwgw-ls-stze transsexual - Active Procedures Procedure Date No information Results Test Name Date and Time Measure Units Reference Range Abnormal Flag Status Comments No information Advance Directives Directive Yes / No Effective Date File Name No information Encounters Encounter Practice Location Reason(s) Diagnoses Date Provider Providers Description For Visit Copied on Encounter [facility] [place] Pauline. [address] [facility], [place], [address] [address], [place]. , [facility] tel:[phone] [place], [id number], [place] tel:[phone] [facility] Elizabeth Jade. [facility] [place] [address] Of [facility] Sheldon 9 [facility], [place], [place], [address], [address] [place]. [place], [id number], [place] tel:[phone] [facility] Raphaelidis [facility] [place] Abigail. [address] [place], [place], [place], [place], [address] [address]. , [facility] tel:[phone] [place], [id number], [place] tel:[phone] [facility] TranssexualismEn Feb- Elizabeth Jade. Referring Parenthood [facility] [address] Provider: Of [address] [place], [address], [place], [address] [place], [address], [place], [place], [id number], [place] [address].Cons tel:[phone] ulting [phone] Provider: NURSE [place] [facility]. [facility] Endocrine Bj Horta. Referring [facility] [place] disorder, [address] Provider: Of [facility] She[facility] unspecifiedTrans [address], [place], [place], [place], [address]. Lorenzo, [address] tel:+[phone], [address] [address] [address], [place], [place], [id number], [place], [address]. [place] tel:+ tel:[phone] sulting Provider: NURSE OR [facility]. [facility] TranssexualismHu Bj Horta. Referring [facility] [place] man [address] Provider: Of [facility] Sheldon immunodeficiency [address], [place], R[place], [place] [[place]] [place], [address]. Lorenzo, [address] counseling tel:+[phone], [address] [address] [address], [place], [place], [id number], [place], [address]. [place] tel:+ tel:[phone] [phone] [facility] Provider: NURSE OR [facility]. [facility] Endocrine Hardy Referring [facility] [place] disorder, Pauline. [facility] Provider: Of [facility] [address], Pauline [place], immunodeficiency [place], [place], Hardy J, [address] virus [HIV] [address], [place]. [address], [place] counseling tel:+[phone], [place], [address] [place], [id number], [place], [address]. [place] tel:+60 tel:[phone] [facility] Endocrine Elizabeth Hansne. Referring [facility] [place] disorder, [address] Provider: Of [facility] unspecifiedTrans [address], [place], [place], [place], [address], Elizabeth, [address] [place], [address], [place], [place], [id number], [place], [address]. [place] tel:[phone] [facility] Endocrine Apr-0 Elizabeth Hansen. Referring [facility] [place] disorder, 2 [address] Provider: Of Greater unspecifiedTrans [address], [place], [place], [place], [address], White, [address] [place], [place] , [place], [place], [id number], [place], [address]. [place] tel:[phone] [facility] Human Dec-2 Elizabeth Hansen. Referring [facility] [place] immunodeficiency 0 [address] Provider: Of Greater virus [HIV] 8 , [place], [facility], [place], [address], White, 620 [address] exualism [place]. [address] , [facility], [place], [place], [place], [id number], [place] [address].Cons tel:[phone] ulting [phone] Provider: NURSE OR [place] [facility]. [facility] Endocrine Dec-0 Hardy Referring [facility] [place] disorder, [address] [place]. 620 Provider: Of [facility] Sheldon unspecifiedHuman [address], [facility], immunodeficiency [place], [place], Hardy J, [address] virus [HIV] [address], [place]. [address] , [place] counseling tel:[phone], [place], [address] [place], [id number], [place], [address]. [place] tel:+60 tel:[phone] [facility] Endocrine Nov-2 Raphaelidis Referring Parenthood [place] disorder, [facility]. [address] Provider: Of Greater unspecifiedTrans [address] , Abigail [place], sexualism [place], [place], Raphaelidi [address] [address]. s, [address], New tel:[phone] [address] , [place], [address] [place], [id number], [place], [address]. [place] tel:+607 tel:[phone] [phone] sulting Provider: NURSE OR [facility]. [facility] TranssexualismEn Nov-0 Elizabeth Jade. Referring [facility] [place] docrine [address] Provider: Of Greater disorder, [address] St, [place], [place], [address], White, [address], [address], [place], [place], [id number], [place] [address].Cons tel:[phone] ulting [phone] Provider: NURSE OR [facility]. [facility] Endocrine Mar- White Jade. Referring [facility] [place] disorder, [address] Provider: Of Greater unspecifiedTrans [address], [place], [place], [place], [address], White, [address], New , [place], [place], [id number], [place] [address].Cons tel:[phone] ulting [phone] Provider: NURSE OR [facility]. [facility] Endocrine Hardy Referring [facility] [place] disorder, Pauline. 620 Provider: Of Greater unspecifiedTrans [address], [place]ine [place], sexualism [place], [place], Hardy J, [address] [address], [place]. [address], New tel:[phone], [place], [address] [place], [id number], [place], [address]. [place] tel:+607 tel:[phone] sulting Provider: NURSE OR [facility]. [facility] Human Vernon Referring [facility] [place] immunodeficiency Aibgail. [address] W Provider: Of Greater virus [HIV] [address], Abigail [place], counselingEndocr [place], [place], Raphaelidi [address] ine disorder, [address]. s, [address], New unspecifiedTrans tel:[phone], [place], [place], sexualismEncount [address] [place], [id number], [place], [address]. [place] for human tel:[phone] tel:[phone] immunodeficiency [phone] virus [facility] TranssexualismEn Elizabeth Neumanna. Referring [facility] [place] docrine [address] Provider: Of Greater disorder, [address] St, [place], [place], [address], White, [address] [place], [address], [place], [place], [id number], [place], [address]. [place] tel:[phone] [facility] Endocrine Jul-2 Elizabeth Hansen. Referring [facility] [place] disorder, 0- [address] Provider: Of Greater unspecifiedTrans [address], [place], [place], [place], [address], White, 620 [address] [place], [address], [place], [place], [id number], [place], [address]. [place] tel:[phone] [facility] Endocrine Jul- Elizabeth Hansen. Referring [facility] [place] disorder, 3 [address] Provider: Of Greater unspecifiedTrans [address], [place], [place], [address], White, [address], [address], [place], [place], [id number], [place] [address].Cons tel:[phone] ulting [phone] Provider: NURSE OR [facility]. [facility] Endocrine Jul-0 Elizabeth Hansen. Referring [facility] [place] disorder, 6 [address] Provider: Of Greater unspecifiedTrans [address], [place], [place], [place], [address], White, [address], [address], [place], [place], [id number], [place] [address].Cons tel:[phone] ulting [phone] Provider: NURSE OR [facility]. [facility] Endocrine Vernon Referring Parenthood [place] disorder, 0-201 Abigail. [address] W Provider: Of Greater unspecifiedTrans [address], [place], sexualism [place], [place], Raphaelidi [address] [address]. s, [address], New tel:[phone], [place], [address] [place], [id number], [place], [address]. [place] tel: tel:[phone] sulting Provider: NURSE OR [facility]. [facility] Endocrine Jun-2 Elizabeth Hansen. Referring [facility] [place] disorder, 3 [address] Provider: Of [address], [place], [address], White, [address] [place], [facility], [place], [place], [place], [id number], [place] [address].Cons tel:[phone] [facility] [phone] Provider: NURSE OR JAH [facility]. [facility] Transsexualism Jun- Raphila [facility] [place] 9201 Abigail. [address] Of [address], [place], [place], [place], [address] [address]. , [facility] tel:[phone] [place], [id number], [place] tel:[phone] [facility] Endocrine Jun-0 Vernon Referring [facility] [place] disorder, 9 Abigail. 620 W Provider: Of [address], sexualism [place], [place], White, 620 [address], [facility] tel:[phone] , [place], [address] [place], [id number], [place], [address]. [place] tel:[phone] Family History Family Member Diagnosis Age At Onset No information Immunizations Vaccine Date Status Comments No information Payers Payer name Insurance type Covered constitution party ID Authorization(s) No information Social History [...] Date No information Medical Equipment Description Device [place] Device Identifier Effective Dates (start - stop ) Status No information Mental Status Date Cognitive Assessment No information Health Concerns Observation Date No information Concern Status Date No information
--- OUTSIDE RECORDS SUMMARY | 2019-08-30 18:25 | XMS REPORT | Continuity of Care Document ---
:1994 Author Organization [facility] Address [address] [place] [address] Phone Care Team Providers Name Role Phone Jade Johnson NP Unavailable Unavailable Allergies, Adverse Reactions, Alerts [...] unspecified Transsexualism Transsexualism Endocrine disorder, unspecified Transsexualism Njomyj-wq-xtxy transsexual - Active Procedures Procedure Date No information Results Test Name Date and Time Measure Units Reference Range Abnormal Flag Status Comments No information Advance Directives Directive Yes / No Effective Date File Name No information Encounters Encounter Practice Location Reason(s) Diagnoses Date Provider Providers Description For Visit Copied on Encounter [facility] Elizabeth Hansen. [facility] [place] [address] Of Greater 0 [facility], [place], [address], [address] [place]. [place], [id number], [place] tel:[phone] [facility] [place] Pauline. [address] [place], [place], [place], [address] [address], [place]. , [facility] tel:[phone] [place], [id number], [place] tel:[phone] [facility] Raphaelidis [facility] [place] Abigail. [address] Greater [address] [facility], [place], [address] [address], [facility] tel:[phone] [place], [id number], [place] tel:[phone] [facility] TranssexualismEn Elizabeth Hansen. Referring Parenthood [place] [facility] 3 [address] Provider: Of [address] [place], [place] [address], White, [address], [address], [place], [place], [id number], [place] [address].Cons tel:[phone] [phone] Provider: NURSE OR [facility]. [facility] Endocrine Bj Horta. Referring [facility] [place] disorder, [address] Provider: Of [facility] unspecifiedTrans [address], [place], [place], [place], [address]. Lorenzo, [address] tel:+[phone], [address] [address] [address], [place], [place], [id number], [place], [address]. [place] tel: tel:[phone] sulting Provider: NURSE OR [facility]. [facility] TranssexualismHu Bj Horta. Referring [facility] [place] man [address] Provider: Of Greater immunodeficiency [address], [place], [place], [place] [[place]] [place], [address]. Lorenzo, [address] counseling tel:+[address], [place] [address] [address], [place], [place], [id number], [place], [address]. [place] tel: tel: [phone] sulting Provider: NURSE OR [facility]. [facility] Endocrine Hardy Referring Parenthood [place] disorder, Pauline. 620 Provider: Of [facility] unspecifiedman [address], [place], immunodeficiency [place], [place], Hardy J, [address] virus [HIV] [address], [place]. [address], [place] counseling tel:[phone], [place], [address] [place], [id number], [place], [address]. [place] tel: tel:[phone] [facility] Endocrine Elizabeth Hansen. Referring [facility] [place] disorder, [address] Provider: Of Greater unspecifiedTrans [address], [place], [place], [place], [address], White, [address], [address], [place], [place], [id number], [place], [address]. [place] tel:[phone] [facility] Endocrine Apr-0 Elizabeth Hansen. Referring [facility] [place] disorder, 2 [address] Provider: Of [facility] unspecifiedTrans [address], [place], [place], [place], [address], White, 620 [address], [place] , [place], [place], [id number], [place], [address]. [place] tel:[phone] [facility] Human Dec-2 Elizabeth Hansen. Referring [facility] [place] immunodeficiency 0 [address] Provider: Of Greater virus [HIV] 8 , [place], [place] [facility], [place], [address], White, 620 [address] exualism [place]. [address] [place] , [facility], [place], [place], [place], [id number], [place] [address].Cons tel:[phone] ulting [phone] Provider: NURSE OR [facility]. [facility] Endocrine Dec-0 Hardy Referring Parenthood [place] disorder, 6 [place]. 620 Provider: Of [facility] [address], [facility], immunodeficiency [place], [place], Hardy J, [address] virus [HIV] [address], [place]. [address], [place] counseling tel:[phone], [place], [address] [place], [id number], [place], [address]. [place] tel:+ tel:[phone] [facility] Endocrine Nov-2 Raphaelidis Referring Parenthood [place] disorder, [facility]. [address] Provider: Of [facility] unspecifiedTrans [address] , Abigail [place], sexualism [place], Raphaelidi [address] [address]. s, [address], New tel:[phone] [address] , [place], [address] [place], [id number], [place], [address]. [place] tel:+60 tel:[phone] [phone] sulting Provider: NURSE OR [facility]. [facility] TranssexualismEn Nov-0 Elizabeth Hansen. Referring [facility] [place] docrine [address] Provider: Of Greater disorder, [address], [place], [place], [address], White, [address] [place], [address], [place], [place], [id number], [place] [address].Cons tel:[phone] ulting [phone] Provider: NURSE OR [facility]. [facility] Endocrine Mar- White Jade. Referring [facility] [place] disorder, [address] Provider: Of Greater unspecifiedTrans [address], [place], [place], [place], [address], White, [address] [place], [facility], [place], [place], [place], [id number], [place] [address].Cons tel:[phone] ulting [phone] Provider: NURSE OR [facility]. [facility] Endocrine Hardy Referring Parenthood [place] disorder, [place]. 620 Provider: Of Greater unspecifiedTrans [address], [facility], sexualism [place], Hardy J, [address] [address], [place]. 620 W , New tel:[phone] [address], [place], [address] [place], [id number], [place], [address]. [place] tel:+607 tel:[phone] [phone] sulting Provider: NURSE OR [facility]. [facility] Human Vernon Referring [facility] [place] immunodeficiency Abigail. [address] W Provider: Of Greater virus [HIV] [address], [facility], counselingEndocr [place], Raphaelidi [address] ine disorder, [address]. s, [address], New unspecifiedTrans tel:[phone] [address], [place], sexualismEn[place] [address] [place], [id number], [place], [address]. [place] for human tel:[phone] tel:[phone] virus [facility] TranssexualismEn Elizabeth Hansen. Referring [facility] [place] docrine [address] Provider: Of Greater disorder, [address] St, [place], [place], [place], [address], White, [address], [address], [place], [place], [id number], [place], [address]. [place] tel:[phone] [facility] Endocrine b-2 Elizabeth Hansen. Referring [facility] [place] disorder, 0-201 [address] Provider: Of Greater unspecifiedTrans [address], [place], [place], [place], [address], White, [address] [place], [address], [place], [place], [id number], [place], [address]. [place] tel:[phone] [facility] Endocrine Jul- Elizabeth Hansen. Referring [facility] [place] disorder, 3 [address] Provider: Of Greater unspecifiedTrans [address], [place], [place], [place], [address], White, [address] [place], [address], [place], [place], [id number], [place] [address].Cons tel:[phone] ulting [phone] Provider: NURSE OR [facility]. [facility] Endocrine Jul-0 Elizabeth Hansen. Referring [facility] [place] disorder, 6 [address] Provider: Of Greater unspecifiedTrans [address], [place], [place], [place], [address], White, [address], [address], [place], [place], [id number], [place] [address].Cons tel:[phone] ulting [phone] Provider: NURSE OR [facility]. [facility] Endocrine Jun- Raphfabiolaidis Referring Parenthood [place] disorder, 0-201 Abigail. [address] W Provider: Of Greater unspecifiedTrans [address], [place]ail [place], sexual[place], [place], [place] [address] [address]. s, [address], New tel:+[phone], [place], [address] [place], [id number], [place], [address]. [place] tel:+ tel:[phone] [phone] sulting Provider: NURSE OR [facility]. [facility] Endocrine Jun-2 White Jade. Referring Parenthood [place] disorder, [address] Provider: Of [address] [place], [place], [address], White, [address] [place]. [address] [place] , [facility], [place], [place], [place], [id number], [place] [address].Cons tel:[phone] [facility] [phone] Provider: NURSE OR JAH [facility]. [facility] Transsexualism Jun- Raphaelidis [facility] [place] 9 Abigail. [address] Of [place] [address], [place], [place], [place], [address] [address]. , [facility] tel:[phone] [place], [id number], [place] tel:[phone] [facility] Endocrine Jun-0 Raphila Referring Parenthood [place] disorder, Abigail. 620 W Provider: Of [address], [place], [place], [address] [address], [facility] tel:[phone] , [place], [address] [place], [id number], [place], [address]. [place] tel:[phone] Family History Family Member Diagnosis Age At Onset No information Immunizations Vaccine Date Status Comments No information Payers Payer name Insurance type Covered green party ID Authorization(s) No information Social History [...] Date No information Medical Equipment Description Device [place] Device Identifier Effective Dates (start - stop ) Status No information Mental Status Date Cognitive Assessment No information Health Concerns Observation Date No information Concern Status Date No information
--- OUTSIDE RECORDS SUMMARY | 2019-08-30 18:25 | XMS REPORT | Continuity of Care Document ---
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 [facility] [address] [place] [address] [place], [address], [address] [place]. [place], [place], [id number], [place] tel:[phone] [facility]. [facility] [place] [address] Of [facility] [address] [facility], [place], [address], [address] [place]. [place], [place], [place], [id number], [place] tel:[phone] [facility] Raphaelidis [facility] [place] Abigail. [address] [place], [place], [place], [place], [address] [address]. , [facility] tel:[phone] [place], [id number], [place] tel:[phone] [facility] TranssexualismEn Elizabeth Hansen. Referring Parenthood [facility] [address] Provider: Of [address], [facility], [place], [address], [place], [address] [place], [place], [id number], [place] [address].Cons tel:[phone] Provider: NURSE OR [place] [facility]. [facility] Endocrine Bj Horta. Referring [facility] [place] disorder, [address] Provider: Of [facility] unspecifiedTrans [address], [place], [place], [place], [address]. Lorenzo, [address] tel:[phone], [address] [address] [address], [place], [place], [id number], [place], [address]. [place] tel:[phone] tel:[phone] sulting Provider: NURSE OR [facility]. [facility] TranssexualismHu Bj Horta. [facility]erring [facility] [place] man [address] Provider: Of [facility] immunodeficiency [address], [place], [facility], [place] [[place]] [place], [address]. Lorenzo, [address] counseling tel:[phone], [address] [address] [address], [place], [place], [id number], [place], [address]. [place] tel:+ tel:[phone] [phone] sulting Provider: NURSE OR [facility]. [facility] Endocrine Hardy Referring [facility] [place] disorder, Pauline. [facility] Provider: Of [facility] [address], [place], immunodeficiency [place], [place], [place] [address] virus [HIV] [address], [place]. [address], [place] counseling tel:[phone], [place], [address] [place], [id number], [place], [address]. [place] tel:[phone] tel:[phone] [facility] Endocrine Elizabeth Hansen. Referring [facility] [place] disorder, [address] Provider: Of [facility] unspecifiedTrans [address], [place], [place], [place], [address], [place], [address], [address], [place], [place], [id number], [place], [address]. [place] tel:[phone] [facility] Endocrine Apr-0 Elizabeth Hansen. Referring [facility] [place] disorder, 2 [address] Provider: Of [facility] unspecifiedTrans [address], [place], [place], [place], [address], [place], [address], [address], [place], [place], [id number], [place], [address]. [place] tel:[phone] [facility] Human Dec-2 Elizabeth Hansen. [facility]erring [facility] [place] immunodeficiency 0- [address] Provider: Of Greater virus [HIV] [address], [place], [place], [place], [address], [place], [address] exualism [place]. [address], [place] , [place], [place], [place], [id number], [place] [address].Cons tel:[phone] [phone] Provider: NURSE OR [facility]. [facility] Endocrine Dec-0 Hardy Referring [facility] [place] disorder, [address]. [facility] Provider: Of [facility] [address], [facility], immunodeficiency [place], [place], [place] J, [address] virus [HIV] [address], [place]. [address] , [facility] tel:[phone] [address], [place], [address] [place], [id number], [place], [address]. [place] tel:[phone] tel:[phone] [facility] Endocrine Nov-2 Raphaelidis Referring [facility] [place] disorder, [facility]. [address] Provider: Of [facility] [address] , [facility], sexualism [place], [place], Raphaelidi [address] [address]. s, [address], New tel:[phone] [address] , [place], [address] [place], [id number], [place], [address]. [place] tel:[phone] tel:[phone] sulting Provider: NURSE OR [facility]. [facility] TranssexualismEn Nov-0 Elizabeth Jade. Referring [facility] [place] docrine 8 [address] Provider: Of Greater disorder, [address], [place], [place], [address], [place], [address], [address], [place], [place], [id number], [place] [address].Cons tel:[phone] ulting [phone] Provider: NURSE OR [facility]. [facility] Endocrine Mar- White Jade. Referring [facility] [place] disorder, [address] Provider: Of Greater unspecifiedTrans [address], [place], [place], [place], [address], [place], [address], [place] , [place], [place], [id number], [place] [address].Cons tel:[phone] ulting [phone] Provider: NURSE OR [facility]. [facility] Endocrine Hardy Referring [facility] [place] disorder, Pauline. 620 Provider: Of Greater unspecifiedTrans [address], [place], sexualism [place], [place] J, [address] [address], [place]. [address], [place] tel:[phone], [place], [address] [place], [id number], [place], [address]. [place] tel:[phone] tel:[phone] sulting Provider: NURSE OR JAH [facility]. [facility] Human Raphaelidis Referring [facility] [place] immunodeficiency Abigail. [address] Provider: Of Greater virus [HIV] [address], [facility], counselingEndocr [place], [place], Raphaelidi [address] ine disorder, [address]. s, [address], New unspecifiedTrans tel:[phone], [place], [place], [place] [address] [place], [id number], [place], [address]. [place] for human tel:[phone] tel:[phone] virus [facility] TranssexualismEn White Jade. Referring [facility] [place] docrine [address] Provider: Of Greater disorder, [address], [place], [place], [address], [place], [address], [address], [place], [place], [id number], [place], [address]. [place] tel:[phone] [facility] Endocrine Jul-2 Elizabeth Hansen. Referring [facility] [place] disorder, 0- [address] Provider: Of Greater unspecifiedTrans [address], [place], [place], [place], [address], [place], [address], [address], [place], [place], [id number], [place], [address]. [place] tel:[phone] [facility] Endocrine Jul- Elizabeth Hansen. Referring [facility] [place] disorder, 3 [address] Provider: Of Greater unspecifiedTrans [address], [place], [place], [place], [address], [place], [address], [place] , [place], [place], [id number], [place] [address].Cons tel:[phone] [phone] Provider: NURSE OR [facility]. [facility] Endocrine Jul-0 Elizabeth Hansen. Referring [facility] [place] disorder, 6 [address] Provider: Of Greater unspecifiedTrans [address], [place], [place], [place], [address], [place], [address], [place] , [place], [place], [id number], [place] [address].Cons tel:[phone] [facility] [phone] Provider: NURSE OR [facility]. [facility] Endocrine Jun-3 Vernon Referring [facility] [place] disorder, 0-201 Abigail. [address] Provider: Of Greater unspecifiedTrans [address], [place], sexual[place], [place], Raphaelidi [address] [address]. s, [address], New tel:[phone], [place], [address] [place], [id number], [place], [address]. [place] tel: tel:[phone] sulting Provider: NURSE OR [facility]. [facility] Endocrine Jun-2 Elizabeth Hansen. Referring [facility] [place] disorder, 3 [address] Provider: Of [address], [facility], [address], [place], [address] [place]. W [facility], [place], [place], [place], [id number], [place] [address].Cons tel:[phone] [facility] [phone] Provider: NURSE OR [place] [facility]. [facility] Transsexualism Jun- Raphila [facility] [place] 9 Abigail. [address], [place], [place], [place], [address] [address]. , [facility] tel:[phone] [place], [id number], [place] tel:[phone] [facility] Endocrine Jun-0 Vernon Referring [facility] [place] disorder, Abigail. [address] Provider: Of [address], [place], [place], [address] [address]. W [facility], [facility] tel:[phone] , [place], [address] [place], [id number], [place], [address]. [place] tel:[phone] Family History Family Member Diagnosis Age At [...] Date No information Medical Equipment Description Device [place] Device Identifier Effective Dates (start - stop ) Status No information Mental Status Date Cognitive Assessment No information Health Concerns Observation Date No information Concern Status Date No information
--- NOTE | 2019-08-30 18:37 | ED ---
Influenza-Like Illness - HPI Summary HPI Summary: Patient complains of chills, dry cough, nasal congestion, facial pressure, headache, mild exertional SOB 2 days. History of asthma, seasonal allergies. States Zyrtec is not helping current symptoms, though usually relieves allergies. Patient has been using albuterol inhaler more frequently with only temporary improvement in symptoms. Patient states shortness of breath may be due to severe nasal congestion. Denies foreign travel, known covid exposure, contact exposure, known fever, CP, sore throat, ear pain, neck stiffness, and/V/ D, abdominal pain, change in urine, change in BM. Medical history is asthma.. - History of Current Complaint Chief Complaint: EDFluSymptoms Time Seen by Provider: 08/30/19 18:34 Hx Obtained From: Patient Onset/Duration: Gradual Onset, Lasting Days Severity: Moderate Associated Signs & Symptoms: Cough, Nasal Congestion, Headache - Allergy/Home Medications Allergies/Adverse Reactions: Allergies Allergy/AdvReac Type Severity Reaction Status Date / Time Penicillins Allergy Hives Verified 08/30/19 18:22 pineapple Allergy Hives Verified 08/30/19 18:22 ENVIRONMENTAL Allergy WATERY Uncoded 08/30/19 18:22 EYES, RUNNY NOSE Home Medications: Home Medications Albuterol HFA INHALER* [Ventolin HFA Inhaler*] 2 puff INH Q4HR 10/28/12 [ History Confirmed 04/12/19] Testosterone Cypionate 200 mg IM SEE INSTRUCTIONS #1 vial MDD 1 07/08/18 [Rx Confirmed 04/12/19] Ketoconazole 1 applic TOPICAL WEEKLY 12/17/18 [History Confirmed 04/12/19] Omeprazole 20 mg PO DAILY 12/17/18 [History Confirmed 04/12/19] hydrOXYzine pamoate [Hydroxyzine Pamoate] 25 mg PO BEDTIME 12/17/18 [History Confirmed 04/12/19] Albuterol/Ipratropium NEB.CLAUDINE* [Duoneb (Albuterol 2.5 MG/Ipratropium 0.5 MG)] 3 ml INH Q6HR 04/12/19 [History Confirmed 04/12/19] Citalopram TAB* [Celexa TAB*] 30 mg PO DAILY #9 tab 04/12/19 [Rx] Azithromycin 250 mg PO DAILY 5 Days #6 tablet 08/30/19 [Rx] PMH/Surg Hx/FS Hx/Imm Hx Endocrine/Hematology History: Reports: Other Endocrine/Hematological Disorders - PCOS - rx'd metformin - doesn't take d/t GI SE Denies: Hx Anticoagulant Therapy, Hx Blood Disorders, Hx Diabetes, Hx Thyroid Disease Cardiovascular History: Denies: Hx Hypertension, Hx Pacemaker/ICD, Other Cardiovascular Problems/ Disorders Respiratory History: Reports: Hx Asthma Denies: Hx Chronic Obstructive Pulmonary Disease (COPD), Other Respiratory Problems/Disorders GI History: Reports: Hx Gastroesophageal Reflux Disease Denies: Hx Ulcer, Other GI Disorders History: Denies: Hx Renal Disease Musculoskeletal History: Reports: Hx Tendonitis - RIGHT ELBOW Sensory History: Reports: Hx Contacts or Glasses - GLASSES Denies: Hx Hearing Aid Opthamlomology History: Reports: Hx Contacts or Glasses - GLASSES EENT History: Denies: Hx Deafness Neurological History: Denies: Other Neuro Impairments/Disorders Psychiatric History: Reports: Hx Anxiety Denies: Hx Panic Disorder - SOME ANXIETY - Cancer History Hx Chemotherapy: No Hx Radiation Therapy: No - Surgical History Surgery Procedure, Year, and Place: APPENEDECTOMY 11/15/11. TONSILLECTOMY Hx Anesthesia Reactions: No Infectious Disease History: No Infectious Disease History: Denies: Hx Clostridium Difficile, Hx Hepatitis, Hx Human Immunodeficiency Virus (HIV), Hx of Known/Suspected MRSA, Hx Shingles, Hx Tuberculosis, Hx Known/ Suspected VRE, Hx Known/Suspected VRSA, History Other Infectious Disease, Traveled Outside the [place] in Last 30 Days - Family History Known Family History: Positive: Cardiac Disease - a. fib, Respiratory Disease - asthma, Seizure Disorder - aunt, Other - variety of cancers, Non-Contributory - Social History Alcohol Use: Occasionally Alcohol Amount: 1-2 beers every once in a while Hx Substance Use: No Substance Use Type: Reports: None Hx Tobacco Use: Yes Smoking Status (MU): Light Every Day Tobacco Smoker Type: Cigarettes Amount Used/How Often: 7 cigarettes a day Have You Smoked in the Last Year: No Review of Systems Positive: Chills Eyes: Negative Positive: Nasal Discharge Cardiovascular: Negative Positive: Shortness Of Breath, Cough Gastrointestinal: Negative Genitourinary: Negative Musculoskeletal: Negative Skin: Negative Positive: Headache Psychological: Normal All Other Systems Reviewed And Are Negative: Yes Physical Exam Triage Information Reviewed: Yes Vital Signs On Initial Exam: Initial Vitals Temp Pulse Resp BP Pulse Ox 98.9 F 74 16 131/87 96 08/30/19 18:18 08/30/19 18:18 08/30/19 18:18 08/30/19 18:18 08/30/19 18:18 Vital Signs Reviewed: Yes Appearance: Positive: Well-Appearing Skin: Positive: Warm Head/Face: Positive: Normal Head/Face Inspection Eyes: Positive: Normal ENT: Positive: Normal ENT inspection Neck: Positive: Supple Respiratory/Lung Sounds: Positive: Clear to Auscultation Cardiovascular: Positive: Normal Abdomen Description: Positive: Nontender Musculoskeletal: Positive: Normal Neurological: Positive: Normal Psychiatric: Positive: Normal AVPU Assessment: Alert - [place] Coma Scale Best Eye Response: 4 - Spontaneous Best Motor Response: 6 - Obeys Commands Best Verbal Response: 5 - Oriented Coma Scale Total: 15 Procedures - Sedation Patient Received Moderate/Deep Sedation with Procedure: No Diagnostics - Vital Signs Vital Signs Temp Pulse Resp BP Pulse Ox 08/30/19 18:18 98.9 F 74 16 131/87 96 - Laboratory Lab Statement: Any lab studies that have been ordered have been reviewed, and results considered in the medical decision making process. Flu Symptom Course/Dx - Course Course Of Treatment: Patient complains of chills, dry cough, nasal congestion, facial pressure, headache, mild exertional SOB 2 days. History of asthma, seasonal allergies. States Zyrtec is not helping current symptoms, though usually relieves allergies. Patient has been using albuterol inhaler more frequently with only temporary improvement in symptoms. Patient states shortness of breath may be due to severe nasal congestion. Denies foreign travel, known covid exposure, contact exposure, known fever, CP, sore throat, ear pain, neck stiffness, and/V/D, abdominal pain, change in urine, change in BM. Medical history is asthma.. Vital signs normal limits. Chest x-ray negative. Patient shortness of breath likely due to severe nasal congestion. - Diagnoses Provider Diagnoses: Sinusitis Discharge ED - Sign-Out/Discharge Documenting (check all that apply): Patient Departure - Discharge Plan Condition: Stable Disposition: HOME Prescriptions: Azithromycin 250 mg PO DAILY 5 Days #6 tablet Patient Education Materials: Sinusitis (ED) Referrals: Timmy LAGUERRE,Randy Chapman [Primary Care Provider] - Additional Instructions: Take antibiotics as directed. Vaporizer may help with symptoms. Alternate ibuprofen 600 mg with Tylenol 650 mg every 3 hours for headache, sinus pain. Follow-up with primary care. - Billing Disposition and Condition Condition: STABLE Disposition: Home
[2019-08-30] MEDS ORDERED: Azithromycin TAB* 250 MG PO ONE (18:55)
[2019-08-30 20:32] VITALS: BP 0/0
== END 2019-08-30 20:31 | disposition home or self-care (01) ==
LOC: ED 18:11
DX: J32.9 Chronic sinusitis, unspecified (principal); R05 Cough; R09.81 Nasal congestion; R51 Headache; Z88.0 Allergy status to penicillin; K21.9 Gastro-esophageal reflux disease without esophagitis; J45.909 Unspecified asthma, uncomplicated; R06.02 Shortness of breath; Z79.899 Other long term (current) drug therapy; F17.210 Nicotine dependence, cigarettes, uncomplicated
CPT/HCPCS: 71045; 99282; A9270-GY